=== PATIENT | male | born 1980 | race Caucasian/White ===

== ENCOUNTER 2018-08-05 23:45 | Emergency (ER) | payer BC, SELFPAY ==
[2018-08-05 23:47] VITALS: BP 119/76; PULSE 79; RESP 16; TEMP 36.1; BMI 17.9
[2018-08-06 00:33] LABS: Absolute Lymphocyte Count 1.82 X10^3/ul (0.83-4.51); Absolute Neutrophil Count 4.2 X10^3/uL (2.0-7.7); Basophil# 0.04 X10^3/uL; Basophil% 0.6 % (0-1); Eosinophil# 0.21 X10^3/uL; Eosinophils% 3.1 % (0-5); Hematocrit 49.7 % (40-54); Hemoglobin 17.1 g/dl (13.0-16.5); Lymphocyte # 1.82 X10^3/ul (4.0); Mean Corp Hgb Conc 34.4 g/gl (32-36); Mean Corpuscular Hgb 32.4 pg (27.0-32.0); Mean Corpuscular Volume 94.3 fL (80-94); Mean Platelet Vol. 9.5 fl (6.2-12.0); Monocyte# 0.43 X10^3/uL; Monocyte% 6.4 % (0-10); Neutrophil # 4.23 X10^3/uL (2.7-7.7); Neutrophil % 62.6 % (47-70); Platelet Count 218 K/mm3 (150-450); RBC Distribution Width CV 13.5 % (11.6-14.6); RBC Distribution Width SD 46.1 fl (35.1-43.9); Red Blood Count 5.27 M/mm3 (4.6-6.2); White Blood Count 6.8 K/mm3 (4.4-11.0)
[2018-08-06 00:35] LABS: POSITIVE COUNT NO; POSITIVE DIFFERENTIAL NO; POSITIVE MORPHOLOGY NO
[2018-08-06 00:44] LABS: Anion Gap 8 (5-15); BUN 8 mg/dL (7-18); BUN/Creat Ratio 10.9 RATIO (10-20); Calcium,Total 8.7 mg/dL (8.5-10.1); Chloride 104 mmol/L (98-107); Creatinine, Serum 0.74 mg/dL (0.70-1.30); EST Glomerular Filtration Rate 125 mL/min (>60); Est Glom Filt Rate - Afr Amer 151 mL/min (>60); Estimated Creatinine Clearance 118.81 ml/min; Glucose 86 mg/dL (74-106); Potassium 3.6 mmol/L (3.5-5.1); Sodium Level 138 mmol/L (136-145)
--- NOTE | 2018-08-06 01:10 | ED.DCSUM_ITS ---
- ER Visit Summary Date of Service: 08/06/18 Chief Complaint: Suicidal ideation History of Present Illness: The patient is a 38 M brought in by police for suicidal ideation. Reports patient left the alliance party after drinking was found walking, police was called to check on his status. He reported he has been h aving suicidal thoughts. Information stating he has had relationship issues. No further information discussed with patient. He states he has had suicidal thoughts twice in the past. No suicide attempts. He states he drinks alcohol daily. Tobacco history. Denies illicit drugs. No history of seeing a counselor or psychiatrist. Denies any past medical history. States only hernia surgery in the past. Physical Examination: General: Alert and oriented ?3, no acute distress, cooperative with exam however not fully disclosing all answers HEENT: Normocephalic, atraumatic. Moist mucosa membranes Neck: supple, nontender. Cardiovascular: Regular rate and rhythm, no murmurs Respiratory: Normal breath sounds, symmetric, no distress Abdomen: Soft, nontender, nondistended Extremities: Nontender, no edema, pulses intact ?4 Neuro: no focal neurological deficits. Psych: Suicidal ideations. No homicidal ideations. Test Results: Tox screen negative. Alcohol 204. CBC, BMP normal. Emergency Department Course and Treatment: Patient cooperative with exam, however he did not want to further explain reasons for suicidal thoughts. Only thing he stated was relationship problems. He denies any plan. Medical clearance workup initially. Alcohol is 204, tox screen negative. Clinically stable walking in the room. He is medically cleared. Pending [facility] evaluation. 0 [phone]: Patient evaluated by mental health counselor. He is no longer suicidal. Reports he made poor decision and statement. Safety contract with mental health counselor. He is from [place], follow-up call will be made in the morning by counselor. Treatment Plan: [] Disposition: Discharge Impression: 1. Suicidal ideation 2. Alcohol dependence This note was generated with [employer] dictation software. It may contain incorrect words, spelling, and punctuation that were not noted in review of the chart prior to signing ED Disposition - Plan for ED Patient: Disposition: Home or Assisted Living Chief Complaint: Suicidal Diagnosis: Suicidal ideation, Alcohol dependence Instructions: ED Contract, No Harm, Understanding Alcoholism Referrals: Jayme Cid MD [Primary Care Provider] - 3-5 Days Additional Instructions: Counselor will follow up with call tomorrow.
[2018-08-06 01:11] LABS: Amphetamine Urine VISTA NEGATIVE (<1000 ng/mL); Barbiturate Urine VISTA NEGATIVE (< 200 ng/mL); Benzodiazepine Urine VISTA NEGATIVE (< 200 ng/mL); Cocaine Urine VISTA NEGATIVE (< 300 ng/mL); Ecstacy Urine VISTA NEGATIVE (< 500 ng/mL); Methadone Urine VISTA NEGATIVE (< 300 ng/mL); PCP Urine VISTA NEGATIVE (< 25 ng/mL); THC Urine VISTA NEGATIVE (< 50 ng/mL); Vista UDS pH Range 6
[2018-08-06 01:56] VITALS: RESP 12
[2018-08-06 02:50] VITALS: BP 111/70; PULSE 87; RESP 18; O2SAT 98
[2018-08-06 04:09] VITALS: BP 121/70; PULSE 67; RESP 18; O2SAT 97
--- NOTE | 2018-08-06 04:09 | NURSING ---
PATIENT TOLD THIS NURSE THAT HE HIT THE LEFT SIDE OF HIS HEAD EARLIER IN THE EVENING. I LET DR. LUCIANO KNOW AND SINCE HE WASN'T HAVING ANY SYMPTOMS HE WASN'T WORRIED.
[2018-08-06 05:01] VITALS: BP 136/88; PULSE 92; RESP 18; O2SAT 97
--- NOTE | 2018-08-06 05:02 | ED.RN ---
PATIENT SENT HOME WITH SAFETY PLAN FROM [facility]. DR. LUCIANO IS MADE AWARE OF THIS AND AGREED TO THE PLAN. A CAB WAS CALLED AND PATIENT WAS DISCHARGED.
== END 2018-08-06 05:03 | disposition home or self-care (01) ==
PROVIDERS: Emergency Provider Emergency Medicine; Family Provider Family Medicine; PCP Family Medicine
DX: R45.851 Suicidal ideations (principal); F10.229 Alcohol dependence with intoxication, unspecified; Y90.9 Presence of alcohol in blood, level not specified; Z72.0 Tobacco use
CPT/HCPCS: 80048; 80307; 80320; 85025; 99283; G0480

== ENCOUNTER → 2023-02-10 | Outpatient (CLI) | payer OTHER, SELFPAY ==
[2023-02-10 17:56] LABS: Absolute Lymphocyte Count 2.24 X10^3/uL (0.83-4.51); Absolute Neutrophil Count 3.4 X10^3/uL (2.0-7.7); Basophil# 0.04 X10^3/uL; Basophil% 0.6 % (0-1); Eosinophil# 0.23 X10^3/uL; Eosinophils% 3.7 % (0-5); Hemoglobin 16.4 g/dL (13.0-16.5); Lymphocyte # 2.24 X10^3/ul (0.83-4.51); Lymphocyte % 35.6 % (19-41); Mean Corp Hgb Conc 33.5 g/dL (32-36); Mean Corpuscular Hgb 31.9 pg (27.0-32.0); Mean Corpuscular Volume 95.3 fL (80-94); Mean Platelet Vol. 10.1 fl (6.2-12.0); Monocyte# 0.38 X10^3/uL; NRBC Flagged by Analyzer 0 % (0-5); Neutrophil % 53.9 % (47-70); Platelet Count 288 K/mm3 (150-450); RBC Distribution Width SD 45.6 fl (35.1-43.9); Red Blood Count 5.14 M/mm3 (4.6-6.2); White Blood Count 6.3 K/mm3 (4.4-11.0)
[2023-02-10 18:18] LABS: ALB/GLOB Ratio 1.3 RATIO (0.9-2.4); AST(SGOT) 18 U/L (15-37); Alanine Aminotransfer ALT/SGPT 29 U/L (16-61); Albumin, Serum 4.3 g/dL (3.2-5.0); Alkaline Phosphatase 48 U/L (45-117); Anion Gap 6 (5-15); BUN 15 mg/dL (7-18); BUN/Creat Ratio 15.6 RATIO (10-20); Chloride 104 mmol/L (98-107); Cholesterol 179 mg/dL (200); Creatinine, Serum 0.96 mg/dL (0.70-1.30); EST Glomerular Filtration Rate 90 mL/min (>60); Est Glom Filt Rate - Afr Amer 109 mL/min (>60); GGTP 17 U/L (15-85); Globulin 3.3 g/dL (2.2-4.2); Glucose 90 mg/dL (74-106); High Density Lipoprotein 70 mg/dL; Potassium 4.4 mmol/L (3.5-5.1); Protein, Total 7.6 g/dL (6.4-8.2); Sodium Level 138 mmol/L (136-145); Triglycerides 61 mg/dL; Very Low Density Lipoprotein 12 mg/dL (5-40)
== END | disposition home or self-care (01) ==
LOC: BFHLAB 14:29
PROVIDERS: PCP Family Medicine; Referring Provider Family Medicine; Visit Provider Family Medicine
DX: R56.9 Unspecified convulsions (principal); F10.90 Alcohol use, unspecified, uncomplicated
CPT/HCPCS: 36415; 80053; 80061; 82977; 85025

== ENCOUNTER 2025-05-17 09:33 | Observation (INO) | payer BC, SELFPAY ==
[2025-05-17] VITALS (18 sets, daily range): BP systolic 104–132; BP diastolic 65–93; PULSE 67–92; RESP 14–18; TEMP 36.6–37.4; O2SAT 94–100; BMI 19.3; BMI 21.9
--- NOTE | 2025-05-17 09:43 | CT_ITS ---
EXAM: CT Abdomen and Pelvis With Intravenous Contrast CLINICAL INDICATION: ABDOMINAL PAIN TECHNIQUE: Axial computed tomography images of the abdomen and pelvis with intravenous contrast. This CT exam was performed using one or more of the following dose reduction techniques: automated exposure control, adjustment of the mA and/or kV according to patient size, and/or use of iterative reconstruction technique. COMPARISON: No relevant prior studies available. FINDINGS: LUNG BASES: Unremarkable. No mass. No consolidation. ABDOMEN: LIVER: Hepatomegaly with fatty infiltration. GALLBLADDER AND BILE DUCTS: Unremarkable. No calcified stones. No ductal dilation. PANCREAS: Unremarkable. No mass. No ductal dilation. SPLEEN: Unremarkable. No splenomegaly. ADRENALS: Unremarkable. No mass. KIDNEYS AND URETERS: Unremarkable. No stones within either kidney. No hydronephrosis. STOMACH AND BOWEL: Fecal retention in the colon consistent with constipation. No obstruction. No mucosal thickening. PELVIS: APPENDIX: Mucosal thickening in the appendix with surrounding inflammation. Appendix measures 1.1 cm in diameter. BLADDER: Unremarkable. No mass. REPRODUCTIVE: Unremarkable as visualized. ABDOMEN and PELVIS: INTRAPERITONEAL SPACE: Unremarkable. No free air. No significant fluid collection. BONES/JOINTS: No acute fracture. No dislocation. SOFT TISSUES: Umbilical hernia containing fat. VASCULATURE: Unremarkable. No abdominal aortic aneurysm. LYMPH NODES: Unremarkable. No enlarged lymph nodes. CT/Abdomen/Pelvis W IV Cont ONLY IMPRESSION: 1. Mucosal thickening in the appendix with surrounding inflammation. Appendix measures 1.1 cm in diameter. Findings are consistent with acute appendicitis. No rupture. 2. Hepatomegaly with fatty infiltration. 3. No obstructive uropathy. 4. Fecal retention in the colon consistent with constipation. 5. Umbilical hernia containing fat. Red Alert: Acute appendicitis without rupture. The critical information above was relayed directly by me by telephone to Brandon Mcnair on 05/17/2025 at 10:57 am with readback verification. Reading Location: [facility]
--- NOTE | 2025-05-17 09:56 | EDS_ITS ---
HPI History of Present Illness Chief Complaint: Abd Pain Narrative Narrative: Chief complaint and HPI: Abdominal pain. 45-year-old male with no significant past medical history other than a previous right inguinal hernia repair open with mesh presents for evaluation of abdominal pain. Onset abdominal pain was yesterday evening after eating. Associated symptoms are bloating and nausea. He denies any fever, chills, shortness of breath, chest pain, emesis, diarrhea, dysuria. States he has not had a bowel movement today. Pain is located around the umbilicus. Not on blood thinners. Last ate a piece of toast early this morning. Review of systems: See HPI Medications: As listed on the chart Allergies: As listed on the chart PFSH: Per chart Vital signs: As listed on the chart. Reviewed. Physical exam: Gen: A&O x3, NAD Head: Normocephalic, atraumatic Eyes: No sclera icterus, conjunctiva clear ENT: Moist mucous membranes Neck: Trachea midline, No JVD CV: RRR, no murmurs, no peripheral edema Resp: Lungs CTA BL, no w/r/c GI: Abd soft, distended, mildly tender to palpation diffusely, no r/r/g : No CVA tenderness Musc: Full ROM, no deformity Skin: Warm, dry Neuro: Alert, oriented, grossly intact, sensation intact Psych: Cooperative, appropriate mood and affect [facility] Medical History Alcohol abuse GERD (gastroesophageal reflux disease) Smoker Seizures Home Medications ?Medication ?Instructions ?Recorded ?Last Taken ?Type azithromycin 250 mg tablet 250 mg PO QDAY #6 tabs 07/09 Unknown Rx benzonatate 200 mg capsule 200 mg PO TID PRN cough #20 caps 07/27/23 Unknown Rx fluticasone propionate 50 1 spray intranasal BID #16 g brady 09/27/23 Unknown Rx mcg/actuation nasal spray,suspension (Allergy Relief (fluticasone)) oxycodone 5 mg tablet 5 - 10 mg (1 - 2 x 5 mg) PO Q4H 05/17/25 Unknown Rx PRN PRN Pain Score 4-10 5 days #14 tabs Allergy/AdvReac Type Severity Reaction Status Date / Time phenytoin (From Dilantin) Allergy Unknown Verified 05/17/25 09:34 Sulfa (Sulfonamide Allergy Unknown Verified 05/17/25 09:34 Antibiotics) Social History Smoking Status: Current every day smoker tobacco type: cigarettes EXAM Physical Exam Const Vital Signs: 05/17/25 09:33 Temperature 99.4 F H Temperature Source Oral Pulse Rate 87 Respiratory Rate 14 Blood Pressure 118/85 H Blood Pressure Mean 96 Pulse Ox 99 Oxygen Delivery Method Room Air MDM MDM MDM Narrative Medical decision making narrative: 45-year-old male with no significant past medical history other than a previous right inguinal hernia repair open with mesh presents for evaluation of abdominal pain. Onset abdominal pain was yesterday evening after eating. Associated symptoms are bloating and nausea. Differential diagnosis includes but is not limited to bowel obstruction, appendicitis, pancreatitis, colitis, UTI, uro lithiasis. NS bolus, morphine, Zofran ordered for symptoms. Abdominal pain workup ordered including CT abdomen and pelvis. CBC with leukocytosis of 16.2. No anemia. CMP relatively unremarkable. Lipase unremarkable. UA negative for UTI. CT abdomen pelvis shows acute appendicitis without rupture. I did personally speak with the radiologist about the findings over the telephone. Fecal retention consistent with constipation. Umbilical hernia containing fat. Zosymaricruz ordered for antibiotics. Dr. Tellez was consulted and patient was discussed. Patient will be admitted under his service for OR later this afternoon. Patient was updated with results and confirmed understanding of plan. Impression: 1. Acute appendicitis Lab Data Labs: Laboratory Results - last 24 hr 05/17/25 05/17/25 09:55 11:05 WBC 16.2 H RBC 5.05 Hgb 15.3 Hct 44.6 MCV 88.3 MCH 30.3 MCHC 34.3 RDW Std Deviation 43.8 RDW Coeff of Garrett 13.5 Plt Count 269 MPV 9.8 Immature Gran % (Auto) 0.400 Neut % (Auto) 79.0 H Lymph % (Auto) 11.9 L Curry % (Auto) 7.8 Eos % (Auto) 0.7 Baso % (Auto) 0.2 Absolute Neuts (auto) 12.8 H Absolute Lymphs (auto) 1.93 Nucleated RBC % 0 Sodium 136 Potassium 4.1 Chloride 101 Carbon Dioxide 23.0 Anion Gap 12 BUN 15 Creatinine 0.84 Estim Creat Clear Calc 102.10 Est GFR (MDRD) Non-Af 108 BUN/Creatinine Ratio 17.5 Glucose 107 H Calcium 9.6 Total Bilirubin 0.90 AST 19 ALT 30 Alkaline Phosphatase 63 Total Protein 7.3 Albumin 4.5 Globulin 2.9 Albumin/Globulin Ratio 1.6 Lipase 16 Urine Color Yellow Urine Clarity Clear Urine pH 7.0 Ur Specific Sentinel 1.010 Urine Protein 15 H Urine Glucose (UA) Normal Urine Ketones Negative Urine Occult Blood Negative Urine Nitrite Negative Urine Bilirubin Negative Urine Urobilinogen Normal Ur Leukocyte Esterase Negative Urine RBC 0 SEEN Urine WBC 0 SEEN Ur Squamous Epith Cells 0 SEEN Urine Bacteria 0 SEEN Urine Mucus 0 SEEN Radiography Diagnostic Testing: Clinical Impression(s) from Imaging Studies Abdomen/Pelvis CT 05/17/25 09:43 IMPRESSION: 1. Mucosal thickening in the appendix with surrounding inflammation. Appendix measures 1.1 cm in diameter. Findings are consistent with acute appendicitis. No rupture. 2. Hepatomegaly with fatty infiltration. 3. No obstructive uropathy. 4. Fecal retention in the colon consistent with constipation. 5. Umbilical hernia containing fat. Red Alert: Acute appendicitis without rupture. The critical information above was relayed directly by me by telephone to Brandon Luna on 05/17/2025 at 10:57 am with readback verification. Reading Location[facility] Discharge Plan Disposition Disposition: Acute Care Hospital [facility] Discharge Date/Time: 05/17/25 12:42
[2025-05-17] MEDS: 0.9% Normal Saline (1000mL) 1,000 ML 999 ML IV (10:12)
[2025-05-17 10:19] LABS: Hematocrit 44.6 % (40-54); Hemoglobin 15.3 g/dL (13.0-16.5); Immature Granulocytes Count 0.060 X10^3/uL (0.0-0.0); Mean Corp Hgb Conc 34.3 g/dL (32-36); Mean Corpuscular Volume 88.3 fL (80-94); Mean Platelet Vol. 9.8 fl (6.2-12.0); NRBC Flagged by Analyzer 0 % (0-5); Platelet Count 269 K/mm3 (150-450); RBC Distribution Width CV 13.5 % (11.6-14.6); RBC Distribution Width SD 43.8 fl (35.1-43.9); Red Blood Count 5.05 M/mm3 (4.6-6.2); White Blood Count 16.2 K/mm3 (4.4-11.0)
[2025-05-17 11:00] LABS: AST(SGOT) 19 U/L (<=37); Alanine Aminotransfer ALT/SGPT 30 U/L (<=46); Albumin, Serum 4.5 g/dL (3.5-5.0); Alkaline Phosphatase 63 U/L (40-129); Anion Gap 12 (5-15); BUN 15 mg/dL (4-19); BUN/Creat Ratio 17.5 RATIO (10-20); Calcium,Total 9.6 mg/dL (7.6-11.0); Carbon Dioxide 23.0 mmol/L (21.0-32.0); Chloride 101 mmol/L (98-108); Estimated Creatinine Clearance 102.10 ml/min (50-250); Globulin 2.9 g/dL (2.2-4.2); Glucose 107 mg/dL (70-99); Lipase 16 U/L (13-75); Potassium 4.1 mmol/L (3.3-5.1)
[2025-05-17 11:12] LABS: Mucous, Urine 0 SEEN /hpf (<or=2+); Red Blood Cells-Urine 0 SEEN /hpf (0-5); Squamous Epithelial Cells - UA 0 SEEN /hpf (0-5)
[2025-05-17 11:19] LABS: Color, Urine Yellow (Yellow); Glucose, Dipstick Normal (Normal); Ketone-Dipstick Negative (Negative); Leukocyte Esterase-Dipstick Negative /ul (Negative); Nitrite-Dipstick Negative (Negative); Occult Blood-Urine Negative /ul (Negative); Protein-Dipstick 15 mg/dl (Negative); Specific Gravity, Urine 1.010 (1.002-1.030); Urine Bilirubin Dipstick Negative (Negative)
--- NOTE | 2025-05-17 11:27 | HP.PCM.SX_ITS ---
HPI - General HPI Narrative EAMON MERA, is a 45 M who presents with lower abdominal pain that started yesterday. He reports no nausea or vomiting. He does have a low-grade fever. PFSH Home Medications ?Medication ?Instructions ?Recorded ?Last Taken ?Type azithromycin 250 mg tablet 250 mg PO QDAY #6 tabs 07/09 Unknown Rx benzonatate 200 mg capsule 200 mg PO TID PRN cough #20 caps 07/27/23 Unknown Rx fluticasone propionate 50 1 spray intranasal BID #16 g brady 09/27/23 Unknown Rx mcg/actuation nasal spray,suspension (Allergy Relief (fluticasone)) Allergy/AdvReac Type Severity Reaction Status Date / Time phenytoin (From Dilantin) Allergy Unknown Verified 05/17/25 09:34 Sulfa (Sulfonamide Allergy Unknown Verified 05/17/25 09:34 Antibiotics) Social History Smoking Status: Current every day smoker tobacco type: cigarettes Vital Signs Vital Signs Vital Signs: 05/17/25 09:33 Temperature 99.4 F H Temperature Source Oral Pulse Rate 87 Respiratory Rate 14 Blood Pressure 118/85 H Blood Pressure Mean 96 Pulse Ox 99 Oxygen Delivery Method Room Air Weight Weight: 146 lb 6.191 oz Body Mass Index (BMI) 19.3 Physical Exam Const oriented x3 and no apparent distress Resp normal respiratory effort Cardio regular rate and regular rhythm GI soft to palpation Palpation: tender RLQ Extremity normal to inspection Results Lab / Micro Data 05/17/25 09:55 05/17/25 09:55 Labs: Laboratory Results - last 24 hr 05/17/25 09:55: WBC 16.2 H, RBC 5.05, Hgb 15.3, Hct 44.6, MCV 88.3, MCH 30.3, MCHC 34.3, RDW Std Deviation 43.8, RDW Coeff of Garrett 13.5, Plt Count 269, MPV 9.8, Immature Gran % (Auto) 0.400, Neut % (Auto) 79.0 H, Lymph % (Auto) 11.9 L, Toombs % (Auto) 7.8, Eos % (Auto) 0.7, Baso % (Auto) 0.2, Absolute Neuts (auto) 12.8 H, Absolute Lymphs (auto) 1.93, Nucleated RBC % 0, Sodium 136, Potassium 4.1, Chloride 101, Carbon Dioxide 23.0, Anion Gap 12, BUN 15, Creatinine 0.84, Estim Creat Clear Calc 102.10, Est GFR (MDRD) Non-Af 108, BUN/Creatinine Ratio 17.5, Glucose 107 H, Calcium 9.6, Total Bilirubin 0.90, AST 19, ALT 30, Alkaline Phosphatase 63, Total Protein 7.3, Albumin 4.5, Globulin 2.9, Albumin/Globulin Ratio 1.6, Lipase 16 05/17/25 11:05: Urine Color Yellow, Urine Clarity Clear, Urine pH 7.0, Ur Specific Golden 1.010, Urine Protein 15 H, Urine Glucose (UA) Normal, Urine Ketones Negative, Urine Occult Blood Negative, Urine Nitrite Negative, Urine Bilirubin Negative, Urine Urobilinogen Normal, Ur Leukocyte Esterase Negative Imaging Radiology Impression Abdomen/Pelvis CT 05/17/25 09:43 IMPRESSION: 1. Mucosal thickening in the appendix with surrounding inflammation. Appendix measures 1.1 cm in diameter. Findings are consistent with acute appendicitis. No rupture. 2. Hepatomegaly with fatty infiltration. 3. No obstructive uropathy. 4. Fecal retention in the colon consistent with constipation. 5. Umbilical hernia containing fat. Red Alert: Acute appendicitis without rupture. The critical information above was relayed directly by me by telephone to Brandon Luna on 05/17/2025 at 10:57 am with readback verification. Reading Location: [facility] Assessment & Plan Assessment/Plan (1) Acute appendicitis: QUALIFIERS: Acute appendicitis type: unspecified acute appendicitis type Qualified Code(s): K35.80 - Unspecified acute appendicitis PLAN: The patient had lower abdominal pain and a white count of 16. He had a CT scan which showed acute appendicitis with thickening of the mucosa and dilation of the appendix. I discussed laparoscopic appendectomy with the patient in detail. I discussed the risks including but not limited to bleeding, infection, injury to other organs such as the bowel, bladder, ureter. Patient understands the risks and is willing to proceed. I will admit the patient for observation and operate this afternoon. Slade Tellez MD Pager: [facility] [address] [place] [address] [address] [place] [address] Office:
[2025-05-17] MEDS: Piperacil/Tazobactam 3.375 GM in 0.9% Normal Saline (50mL MB+) 50 ML IV (11:59)
--- NOTE | 2025-05-17 13:28 | PCM.PRE.AN2 ---
ASA Classification* ASA Classification ASA Classification: 2 and E Assessment & Plan Anesthesia* Anesthesia Assessment Anesthesia Assessment: Discussed sedation and/or anesthesia options, risks, benefits, and alternatives with patient/parents/legal guardian/POA. Questions invited. The patient/parents/legal guardian/POA seems to understand and agrees to proceed with anesthesia plan. Reviewed the physical assessment, medical history, allergy history and patient home medications list prior to surgery/procedure/anesthetic and documented any changes. Performed airway and anesthesia risk assessments. Anesthesia Type Anesthesia Type: General Anesthesia Focused Assessment* Temperature: 97.9 F Pulse Rate: 71 Blood Pressure: 115/65 Respiratory Rate: 16 Pulse Ox: 99 Airway Assessment Mouth opens: >3 cm Mallampati Score: II Labs Anesthesia Preop lab: CBC WBC 16.2 K/mm3 (4.4-11.0) H 05/17/25 09:55 05/17/25 RBC 5.05 M/mm3 (4.6-6.2) 05/17/25 09:55 05/17/25 Hgb 15.3 g/dL (13.0-16.5) 05/17/25 09:55 05/17/25 Hct 44.6 % (40-54) 05/17/25 09:55 05/17/25 Plt Count 269 K/mm3 (150-450) 05/17/25 09:55 05/17/25 CHEMISTRY Potassium 4.1 mmol/L (3.3-5.1) 05/17/25 09:55 05/17/25 Sodium 136 mmol/L (133-145) 05/17/25 09:55 05/17/25 BUN 15 mg/dL (4-19) 05/17/25 09:55 05/17/25 Creatinine 0.84 mg/dL (0.70-1.20) 05/17/25 09:55 05/17/25 Glucose 107 mg/dL (70-99) H 05/17/25 09:55 05/17/25 COAG Pre-Assessment Diagnosis/Proposed Procedure Planned Operative Procedure(s): Laparoscopic appendectomy Anesthesia History Anesthesia History - territory representative: Anesthesia History - territory representative Hx Hospitalization Any Problems With Anesthesia Cholinesterase deficiency You/Your Family Experience fever (hyperthermia) with Relationship Recent Exposure to Contagious Disease Does patient have nerve stimulator Patient instructed to have device shut off --Does patient have Pacemaker or ICD? When Was Last Pacemaker Check QUESTION #4 FULL TEXT: You/Your Family Experience fever (hyperthermia) with Anesthesia Last Oral Intake Last Oral intake: Last Oral Intake NPO since Meds taken in AM with sips of water? Meds patient instructed to take am of surgery PONV PONV - territory representative: PONV - territory representative Female HX of Motion Sickness HX of N/V After Surgery Non-Smoker Duration of Surgery greater than 60 minutes Number of Risk Factors PONV Score Height & Weight Height & Weight: Anesthesia: Height & Weight Height 6 ft 1 in 05/17/25 13:05 Weight: 75.296 kg 05/17/25 13:05 Body Mass Index (BMI) 21.9 05/17/25 13:05 Respiratory Assessment Respiratory Assessment - territory representative: Respiratory Tract Infection Hx - territory representative Hx Respiratory Tract Infection STOP Sleep Apnea STOP Sleep Apnea - territory representative: STOP Sleep Apnea - territory representative Hx Hypertension No 05/17/25 12:58 Hx Sleep Apnea No 05/17/25 12:58 CPAP BIPAP Do you snore loudly (louder No 05/17/25 12:58 than talking or can be heard Do you often feel tired/ No 05/17/25 12:58 fatigued/ sleepy during daytime? Has anyone observed you stop No 05/17/25 12:58 breathing during sleep? STOP Results Negative 05/17/25 12:58 QUESTION #5 FULL TEXT : Do you snore loudly (louder than talking or can be heard through closed doors)? Tobacco Use History Tobacco Use History - territory representative: Tobacco Use History - territory representative Tobacco Use Smoking Status Current every day smoker 05/17/25 12:58 Hx Tobacco Use Yes 05/17/25 12:58 Years Smoking 20 05/17/25 12:58 Packs Smoked per Day Smoking Cessation Date was within the last 15 years Hx Smoking Cessation Date Hx Smoking Cessation Counseling Hematologic Medial History Hematologic Hx - territory representative: Hematologic Medical Hx - metrology specialist Hx of Blood Transfusion No 05/17/25 12:58 Hx of Transfusion in last 3 No 05/17/25 12:58 Months Date of Last Transfusion (if within last 3 months) Ever experience any problems No 05/17/25 12:58 with transfusion(s)? Specify any problems Hx of Preganancy in last 3 N/A 05/17/25 12:58 Months Nurse Filling Out Transfusion TCLEVIDEN 05/17/25 12:58 & Questions: Date: 05/17/25 05/17/25 12:58 Time: 13:19 05/17/25 12:58 Patient unable to answer at this time (ie. confused, unrespo /Reproduction History /Reproductive History - territory representative: /Reproductive Hx- territory representative Hx Now Gestational Age (in weeks): EDC: Hx Hx Para Hx Section SAB Active Medications Active Medications: Current Medications Generic Name Dose Route Start Last Admin Trade Name Freq PRN Reason Stop Dose Admin Sodium Chloride 1,000 mls @ 100 mls/hr 05/17/25 11:30 IV .Q10H [place] Sodium Chloride 250 mls @ 15 mls/hr 05/17/25 13:09 IV .[id number] PRN Saline Flush Sodium Chloride 250 mls @ 15 mls/hr 05/17/25 13:09 IV .[id number] PRN Additional IVPB Infusion Morphine Sulfate 2 - 4 mg 05/17/25 11:28 Morphine 2 Mg/Ml Syringe IV Q2H PRN PRN Pain Score 4-10 Ondansetron HCl 4 mg 05/17/25 11:28 Ondansetron 4 Mg/2 Ml Vial IV Q6H PRN PRN NAUSEA/VOMITING Sodium Chloride 10 - 40 ml 05/17/25 11:28 0.9% Saline Lock 10 Ml Syringe IV UD PRN SALINE FLUSH Sodium Chloride 10 - 40 ml 05/17/25 13:09 0.9% Saline Lock 10 Ml Syringe IV UD PRN SALINE FLUSH PFSH Medical History Alcohol abuse GERD (gastroesophageal reflux disease) Smoker Seizures Home Medications ?Medication ?Instructions ?Recorded ?Last Taken ?Type azithromycin 250 mg tablet 250 mg PO QDAY #6 tabs 07/27/23 Unknown Rx benzonatate 200 mg capsule 200 mg PO TID PRN cough #20 caps 07/27/23 Unknown Rx fluticasone propionate 50 1 spray intranasal BID #16 grams 09/27/23 Unknown Rx mcg/actuation nasal spray,suspension (Allergy Relief (fluticasone)) Allergy/AdvReac Type Severity Reaction Status Date / Time phenytoin (From Dilantin) Allergy Unknown Verified 05/17/25 09:34 Sulfa (Sulfonamide Allergy Unknown Verified 05/17/25 09:34 Antibiotics) Social History Smoking Status: Current every day smoker tobacco type: cigarettes Review of Systems (Anesthesia) ROS Narrative System reviewed and no additional complaints, except as documented.
[2025-05-17] MEDS: 0.9% Normal Saline (1000mL) 1,000 ML 100 ML IV (13:44)
--- NOTE | 2025-05-17 14:38 | NURSING ---
Voided and now back in bed. Going down to surgery via bed at this time.
--- NOTE | 2025-05-17 15:30 | APP_PTH ---
PATIENT: EAMON MERA LOC: [facility] U#:[id number] AGE/SX: 45/M ROOM: NH321 RE05/17/[address]: Dr. Slade Tellez MD : 1980 BED: 1 DIS: 05/17/2025 SPEC #: [id number] RECD: 05/20/25 07:33 STATUS: MISTY MCKINNEY #: [id number] DAVID: 05/17/25 15:[address]: Slade Tellez DEPT: SURGICAL PATHOLOGY RECD BY: Bret Fried ENTERED: 05/20/25 11:15 SP TYPE: APPENDIX OTHR DR: Dr. Christa Garcia MD Tissues: A - Appendix, NOS Procedures: Surgery Specimen Level III HEADER OPERATION: Laparoscopic appendectomy PRE-OP DIAGNOSIS: Acute appendicitis TISSUE SUBMITTED: A- Appendix MICROSCOPIC DIAGNOSIS A. Cecal appendix, laparoscopic appendectomy: * Gangrenous appendicitis * Fibrous obliteration of the distal lumen MICROSCOPIC DESCRIPTION Slides are reviewed. GROSS DESCRIPTION A. Received in formalin labeled with the patient's name and date of . Designated as appendix is a 5.5 x 1.1 cm wood-tinsley appendix with up to 2.2 cm of attached focally congested mesoappendix. The serosa is somewhat dull with patchy fibrinous exudate. The margin is inked black and shaved. Sectioning reveals wood-tinsley congested mucosa with pale fecal material throughout the lumen. The distal tip is fibrotic however, no definitive lesions are grossly appreciated. [employer] sections are submitted in 2 cassettes as follows: A1: Distal tipA2: Margin, cross-sections NM 05/20/2025 CPT:10890
[2025-05-17] MEDS: Bupiv/Epi 0.25% 30 ML Vial (15:50)
--- NOTE | 2025-05-17 16:01 | OP.PCM_ITS ---
Operative Report (Standard) Operative Information Date of Procedure: 05/17/25 Pre-Operative Diagnosis: Acute appendicitis Post-Operative Diagnosis: Acute appendicitis Surgery/Procedure Performed: Laparoscopic appendectomy clinical analyst: Yes Production Control Scheduler: Joann Akhtar Tasks completed by assistant passenger locomotive engineer: Opening & closing Type of Anesthesia: General/Regional RN Documented Start/Stop Times: Operation Date: 05/17/25 15:30 Case Time Into Pre-Op 05/17/25 14:49 Anesthesia Start 05/17/25 15:31 Into Room 05/17/25 15:31 Procedure Start 05/17/25 15:48 Procedure Start Time: 15:48 Procedure Stop Time: 16:10 Select all DRAINS/GRAFTS/IMPLANTS that apply: None Estimated Blood Loss: 5 Specimen collected: Yes Description of specimen(s) removed: Appendix Description of surgery: The patient was brought into the operating room and general anesthesia was induced. The left arm was tucked and the abdomen was prepped and draped in usua l sterile fashion. A small midline incision was made superior to the umbilicus and deepened to the level of the fascia. The fascia was elevated and incised. The peritoneum was also elevated and incised. A finger sweep was performed and a balloon trocar was placed into the abdomen and inflated. The abdomen was insufflated to 15 mmHg and the camera was inserted and the abdomen was inspected for any injuries upon entering the abdomen. There were none. The patient was placed in Trendelenburg position and a 5 mm ports placed in the left lower quadrant and suprapubic areas under direct visualization. Next using atraumatic bowel graspers the appendix was identified. The appendix was grasped and elevated and Enseal was used to take down the mesoappendix. A stapler was used to come across the base of the appendix. The appendix was then placed in Endo Catch bag and removed through the umbilical incision. There was purulent fluid in the pelvis that was suctioned. The staple line was inspected and found to be hemostatic and intact. The 2 5 mm ports are removed under direct visualization. The balloon trocar was deflated and removed and all the air was removed from the abdomen. The umbilical incision fascia was closed with an 0 Vicryl [id number] suture. The incisions were then irrigated with saline and dried. Local anesthetic was injected into the incision sites. The skin incisions were then closed with interrupted 4-0 Monocryl suture and Steri- Strips. Bandages were applied and the patient was awoken and taken to PACU in stable condition. Patient tolerated the procedure well. Surgical Findings: Purulent fluid in the pelvis Complications Complications: No Admit VTE Documentation VTE Mechan Device Prophylaxis: SCD's
--- NOTE | 2025-05-17 16:02 | DCINST_ITS ---
Discharge Instructions Diet Discharge Diet: Light diet - advance as tolerated Activity Discharge Activity: May Not Drive (for 2-3 days or while taking narcotic pain medications) May shower in (days): 1 Lifting Restrictions: 15 lbs for 2 weeks Dressing / Incision Call your doctor if your incision/area has: Continuous Slow Oozing, Sudden Increased Bleeding, Increased Pain/ Swelling, Increased Redness and Foul Smelling Discharge Call your doctor if you observe: Fever of 101 or Higher Suture Line Care: Avoid Pulling/Pushing and Avoid Pinching/Bending Remove Dressing in: 2 days Cleanse incision/area with: Soap & Water Follow Up Care Please Follow Up With: Slade Tellez MD When: Please call to schedule 2 week follow up appointment at [phone] Test Results: Test results from this visit will be discussed in further detail at your follow- up appointment, if applicable. Discharge Plan Admission Admit Date/Time: 05/17/25 11:29 Attending Provider: Slade Tellez Primary Care Provider: Christa Garcia Discharge Orders/Prescriptions Prescriptions: New oxycodone 5 mg Tablet 5 - 10 mg PO Q4H PRN PRN (Reason: Pain Score 4-10) 5 Days Qty: 14 0RF Continued azithromycin 250 mg tablet 250 mg PO QDAY Qty: 6 0RF Rx Instructions: 2 tablets today, then 1 tablet daily on days 2 through 5 benzonatate 200 mg capsule 200 mg PO TID PRN (Reason: cough) Qty: 20 0RF fluticasone propionate [Allergy Relief (fluticasone)] 50 mcg/actuation spray,suspension 1 spray intranasal BID Qty: 16 0RF Rx Instructions: administer into affected nostril Referrals / Follow Up: Christa Garcia MD [Primary Care Provider] - Disposition Disposition (needs filled in before D/C Order can be placed): Home, Self Care
--- NOTE | 2025-05-17 16:20 | PCM.POST.ANE ---
Anesthesia: Postop Eval I Current Vital Signs Temperature: 99.3 F Pulse Rate: 90 Blood Pressure: 126/91 Respiratory Rate: 18 Pulse Ox: 96 Assessment Airway patent: Yes Spontaneous unlabored respirations: Yes nausea: No Vomiting: No Anesthesia Complication: No Fluid Hydration Crystalloid volume administer (ml): 1,000 Total IV fluid infused: 1,000 Progress Note Anesthesia document: Postop Eval 1 completed: Yes
--- OUTSIDE RECORDS SUMMARY | 2025-05-17 19:30 | XMS RPT_ITS | CCD ---
Author Organization [facility] Care Team Providers Care Roller [place] Name Role Phone Christa Garcia Referring Unavailable Brendon Tuttle Attending Unavailable Christa Garcia Primary Care Unavailable Christa Garcia Primary Care Unavailable hCrista Garcia Referring Unavailable Gregorio Shaw Attending Unavailable Christa Garcia Primary Care Unavailable Christa Garcia Attending Unavailable Christa Garcia Referring Unavailable Jose SPENCE, Dr. Goodwin Primary Care Provider Dr. Brandon Luna DO Emergency Provider Rosalinda SPENCE, Dr. June Attending Provider Dr. Slade Tellez MD Admit Provider [phone] Christa Garcia MD Primary Care Provider Allergies Allergy Classification Reported Allergen(s) Allergy Type Date of Onset Reaction(s) Facility (3 sources) Phenytoin Drug Allergy 8 Intolerance [facility] (2 sources) Sulfonamides (Antibiotic) Allergy to substance 8 Unknown [facility] (1 source) Phenytoin Drug Allergy 3 [facility] (1 source) Sulfonamides (Antibiotic) Drug allergy (disorder) 3 [facility] (1 source) Sulfonamides (Antibiotic) Drug Allergy 5 Intolerance [facility] Medications Current Medications Medication Drug Class(es) Dates Sig (Normalized) Sig (Original) azithromycin 250 mg oral tablet (1 source) Macrolide Antimicrobial Start: 07-27-2023 Azithromycin 250 mg tablet Active 250 mg PO daily 6 0 July 27, 2023 12:00am 2 tablets today, then 1 tablet daily on days 2 through 5 benzonatate 200 mg oral capsule (1 source) Non-narcotic Antitussive Start: 07-27-2023 take 1 capsule by mouth three times daily as needed for cough Benzonatate 200 mg capsule Active 200 mg PO THREE TIMES A DAY as needed for cough July 27, 2023 12:00am fluticasone propionate 0.05 mg/actuat metered dose nasal spray (1 source) Corticosteroid Start: 09-27-2023 take 50 ug nasal route twice daily Fluticasone Propionate (Allergy Relief (Fluticasone)) 50 mcg/actuation spray,suspension Active 1 NMA INTRANASAL TWICE A DAY September 27, 2023 1:00am administer into affected nostril omeprazole 20 mg delayed release oral capsule (1 source) Proton Pump Inhibitor take 1 capsule by mouth once daily omeprazole (PRILOSEC) 20 mg capsule Take 20 mg by mouth once daily. Active vitamin b12 1 mg oral tablet (1 source) Vitamin B12 take 1 tablet by mouth once daily cyanocobalamin (VITAMIN B-12) 1,000 mcg tab Take 1,000 mcg by mouth once daily. Active Problems Active Problems Problem Classification Problem Date Documented Da te Episodic/Chronic Abdominal pain (1 source) Abdominal pain; Translations: [Unspecified abdominal pain] 05-17-2025 Episodic Alcohol-related disorders (2 sources) Alcohol dependence; Translations: [Alcohol dependence, uncomplicated] 08-07-2018 Chronic Appendicitis and other appendiceal conditions (2 sources) Acute appendicitis; Translations: [Unspecified acute appendicitis] 05-17-2025 Episodic Other lower respiratory disease (1 source) Cough; Translations: [Cough in adult] 07-27-2023 Episodic Other upper respiratory disease (1 source) Polyp of nasal cavity and/or nasal sinus; Translations: [Nasal polyp, unspecified] 09-27-2023 Episodic Suicide and intentional self-inflicted injury (2 sources) Suicidal thoughts; Translations: [Suicidal ideations] 08-07-2018 Episodic Unclassified (1 source) Cough, unspecified; Translations: [Cough, unspecified] Onset: 07-27-2023 Past or Other Problems Problem Classification Problem Date Documented Da te Episodic/Chronic Epilepsy; convulsions (1 source) Unspecified convulsions; Translations: [Unspecified convulsions] Onset: 02-16-2023 Episodic Results Test Name Value Interpretation Reference Range Facility Absolute lymphocyte countOrd ered By: Brandon Luna on 05-17-2025 Lymphocytes Auto (Unsp spec) [#/Vol] 1.93 10*3/uL 0.83-4.51 [facility] Absolute neutrophil countOrd ered By: Brandon Luna on 05-17-2025 Neutrophils (Bld) [#/Vol] 12.8 10*3/uL High 2.0-7.7 [facility] Anion gap in Serum or Plasma Ordered By: Brandon Luna on 05-17-2025 Anion gap [Moles/Vol] 12 mmol/L 5-15 [facility] Automated lymphocyte count a s percentage of total leukocytesOrdered By: Brandon Luna on 05-17-2025 Lymphocytes/100 WBC Auto (Unsp spec) 11.9 % Low 19-41 [facility] BUN/creatinine ratioOrdered By: Brandon Luna on 05-17-2025 Urea nitrogen/Creatinine [Mass ratio] 17.5 mg/mg 10-20 [facility] Basophil percentageOrdered B y: Brandon Luna on 05-17-2025 Basophils/100 WBC (Bld) 0.2 % 0-1 [facility] Bilirubin Test strip Ql (U)O rdered By: Brandon Luna on 05-17-2025 Bilirubin Ql (U) Negative Negative [facility] Bilirubin, totalOrdered By: Brandon Luna on 05-17-2025 Bilirubin [Mass/Vol] 0.90 mg/dL 0.00-1.30 [facility] Carbon dioxide, total [Moles /volume] in Central venous bloodOrdered By: Brandon Luna on 05-17-2025 CO2 [Moles/Vol] 23.0 mmol/L 21.0-32.0 [facility] Chloride assayOrdered By: Ross Luna on 05-17-2025 Chloride [Moles/Vol] 101 mmol/L 98-108 [facility] Eosinophil percentageOrdered By: Brandon Luna on 05-17-2025 Eosinophils/100 WBC (Bld) 0.7 % 0-5 [facility] Erythrocyte distribution wid th ratioOrdered By: Brandon Luna on 05-17-2025 Erythrocyte distribution width (RBC) [Ratio] 13.5 % 11.6-14.6 [facility] Erythrocyte distribution wid th standard deviationOrdered By: Brandon Gonzalez on 05-17-2025 Erythrocyte distribution width (RBC) [Ratio] 43.8 fl 35.1-43.9 [facility] Glomerular filtration rate ( GFR) estimation/1.73 sq m using serum, plasma, or whole bOrdered By: Brandonankita Luna on 05-17-2025 GFR/1.73 sq M.predicted among non-blacks MDRD (S/P/Bld) [Vol rate/Area] 108 mL/min/{1.73_m2} >60 [facility] Comment on above: mL/min/1.73m2 CKD-EP I Creatinine Equation (2020) Hematocrit Auto (Bld) [Volum e fraction]Ordered By: Brandon Luna on 05-17-2025 Hematocrit (Bld) [Volume fraction] 44.6 % 40-54 [facility] Hemoglobin measurementOrdere d By: Brandon Luna on 05-17-2025 Hemoglobin (Bld) [Mass/Vol] 15.3 g/dL 13.0-16.5 [facility] Immature granulocytes/100 WB C Auto (Bld)Ordered By: Brandon Luna on 05-17-2025 Immature granulocytes/100 WBC (Bld) 0.400 % 0.0-0.9 [facility] Comment on above: IG% - Immature Granu locytes (promyelocytes, myelocytes and metamyelocytes) > 1% indicates that a LEFT SHIFT is Present. Ketones Test strip Ql (U)Ord ered By: Brandon Luna on 05-17-2025 Ketones Ql (U) Negative Negative [facility] Laboratory - Chemistry and C hemistry - challengeOrdered By: Brandon Luna on 05-17-2025 AST [Catalytic activity/Vol] 19 U/L <38 [facility] Lipase measurementOrdered By : Brandon Luna on 05-17-2025 Lipase [Catalytic activity/Vol] 16 U/L 13-75 [facility] Comment on above: Please note:LIPASE r evised reference range effective 23. New Lipase methodology. Expected to produce lower values than the previous assay method. NEW Reference Range: 13 - 75 U/L MCV (mean corpuscular volume ) determinationOrdered By: Brandon Luna on 05-17-2025 MCV (RBC) [Entitic vol] 88.3 fL 80-94 [facility] Mean corpuscular hemoglobin (MCH) determinationOrdered By: Brandon Luna on 05-17-2025 MCH (RBC) [Entitic mass] 30.3 pg 27.0-32.0 [facility] Mean corpuscular hemoglobin concentration (MCHC) determinationOrdered By: Brandon Luna on 05-17-2025 MCHC (RBC) [Mass/Vol] 34.3 g/dL 32-36 [facility] Mean platelet volume determi nationOrdered By: Brandon Luna on 05-17-2025 Platelet mean volume (Bld) [Entitic vol] 9.8 fL 6.2-12.0 [facility] Microscopic analysis of urin e for red blood cells (RBC)Ordered By: Brandon Luna on 05-17-2025 Microscopic analysis of urine for red blood cells (RBC) 0 SEEN /hpf 0-5 [facility] Monocyte percentageOrdered B y: Brandon Luna on 05-17-2025 Monocytes/100 WBC (Bld) 7.8 % 0-10 [facility] Mucus LM Ql (Urine sed)Order ed By: Brandon Luna on 05-17-2025 Mucus Ql (Urine sed) 0 SEEN /hpf [facility] Neutrophil percentageOrdered By: Brandon Luna on 05-17-2025 Neutrophils/100 WBC (Bld) 79.0 % High 47-70 [facility] Nitrite Test strip Ql (U)Ord ered By: Brandon Luna on 05-17-2025 Nitrite Ql (U) Negative Negative [facility] Nucleated red blood cell per centageOrdered By: Brandon Luna on 05-17-2025 Nucleated RBC/100 WBC (Bld) [Ratio] 0 % 0-5 [facility] Platelet countOrdered By: Ross Luna on 05-17-2025 Platelets (Bld) [#/Vol] 269 10*3/uL 150-450 [facility] Potassium measurement (mass/ volume)Ordered By: Brandon Luna on 05-17-2025 Potassium (Unsp spec) [Mass/Vol] 4.1 mmol/L 3.3-5.1 [facility] Protein Test strip Ql (U)Ord ered By: Brandon Luna on 05-17-2025 Protein Ql (U) 15 mg/dl High Negative [facility] RBC Auto (Bld) [#/Vol]Ordere d By: Brandon Luna on 05-17-2025 RBC (Bld) [#/Vol] 5.05 10*6/uL 4.6-6.2 [facility] Serum creatinine measurement (mass/volume)Ordered By: Brandon Luna on 05-17-2025 Creatinine [Mass/Vol] 0.84 mg/dL 0.70-1.20 [facility] Serum globulin measurementOr dered By: Brandon Luna on 05-17-2025 Globulin (S) [Mass/Vol] 2.9 g/dL 2.2-4.2 [facility] Serum glucose measurement (m ass/volume)Ordered By: Brandon Luna on 05-17-2025 Glucose [Mass/Vol] 107 mg/dL High 70-99 [facility] Serum or plasma alanine schaffer otransferase (ALT) measurementOrdered By: Brandon Luna on 05-17-2025 ALT [Catalytic activity/Vol] 30 U/L <47 [facility] Serum or plasma albumin stacey urement (mass/volume)Ordered By: Brandon Gonzalez on 05-17-2025 Albumin [Mass/Vol] 4.5 g/dL 3.5-5.0 [facility] Serum or plasma albumin/glob ulin mass ratioOrdered By: Brandon Luna on 05-17-2025 Albumin/Globulin [Mass ratio] 1.6 {ratio} 0.9-2.4 [facility] Serum or plasma alkaline rachel sphatase measurementOrdered By: Brandon Luna on 05-17-2025 ALP [Catalytic activity/Vol] 63 U/L 40-129 [facility] Serum or plasma calcium stacey urement (mass/volume)Ordered By: Brandon Gonzalez on 05-17-2025 Calcium [Mass/Vol] 9.6 mg/dL 7.6-11.0 [facility] Serum or plasma urea nitroge n measurement (mass/volume)Ordered By: Brandon Luna on 05-17-2025 Urea nitrogen [Mass/Vol] 15 mg/dL 4-19 [facility] Sodium levelOrdered By: Parker Luna on 05-17-2025 Sodium [Moles/Vol] 136 mmol/L 133-145 [facility] Squamous epithelial cells de tection in urine sediment by light microscopyOrdered By: Brandon Luna on 05-17-2025 Epithelial cells.squamous LM Ql (Urine sed) 0 SEEN /hpf 0-5 [facility] Total proteinOrdered By: Alonso Luna on 05-17-2025 Protein [Mass/Vol] 7.3 g/dL 5.9-8.4 [facility] Urine clarityOrdered By: Alonso Luna on 05-17-2025 Clarity (U) Clear Clear [facility] Urine color determinationOrd ered By: Brandon Luna on 05-17-2025 Color (U) Yellow Yellow [facility] Urine glucose detectionOrder ed By: Brandon Luna on 05-17-2025 Glucose Ql (U) Normal mg/dl Normal [facility] Urine leukocyte esterase det ection by dipstickOrdered By: Brandon Luna on 05-17-2025 Leukocyte esterase Test strip Ql (U) Negative Negative [facility] Urine pHOrdered By: Brandon Valdovinos on 05-17-2025 pH (U) 7.0 [pH] 5.0 - 8.0 [facility] Urine sediment bacteria coun t by microscopy (number/high power field)Ordered By: Brandon Luna on 05-17-2025 Bacteria LM.HPF (Urine sed) [#/Area] 0 /[HPF] None Seen [facility] Urine specific gravity measu rementOrdered By: [facility] on 05-17-2025 Specific gravity (U) [Rel density] 1.010 1.002-1.030 [facility] Urine urobilinogen measureme ntOrdered By: Brandonankita Luna on 05-17-2025 Urobilinogen Ql (U) Normal mg/dl Normal [facility] White blood cell (WBC) count Ordered By: Brandon Luna on 05-17-2025 WBC (Bld) [#/Vol] 16.2 10*3/uL High 4.4-11.0 [facility] White blood cell countOrdere d By: Brandon Luna on 05-17-2025 White blood cell count 0 SEEN /hpf 0-5 [facility] Urgent Care Visit Reporton 1 11-27-2022 Urgent Care Visit Report [facility] [address], [address] [place] [id number] OFFICE VISIT Date of Service: 09/27/23 MR#: [id number] Acct: [id number] Name: EAMON CORONA Rep #: [id number] : 1980 Provider: NIGEL Red Age/Sex: 43/M Location: [facility] Status: Signed Intake Vital Signs 07/27/23 15:10 09/27/23 15:26 Height 1.88 m 1.88 m Weight: 70.76 kg 71.214 kg BMI 20.0 20.1 BP 113/76 118/80 Blood Pressure Location Lt brachial Rt brachial Position Sitting Sitting Pulse 73 70 Pulse Source Monitor Monitor Temp 98.4 F 98.4 F Temp Source Temporal Temporal Pulse Oximetry (%) 95 97 Intake Visit Reasons: POLYP IN NOSE Chief Complaint: left nasal polyp Allergies phenytoin [From Dilantin] Allergy (Verified 09/27/23 15:28) Unknown Sulfa (Sulfonamide Antibiotics) Allergy (Verified 09/27/23 15:28) Unknown Medications azithromycin 250 mg tablet 250 mg PO QDAY #6 tabs 07/27/23 [Rx Confirmed 09/27/23] benzonatate 200 mg capsule 200 mg PO TID PRN cough #20 caps 07/27/23 [Rx Confirmed 09/27/23] fluticasone propionate 50 mcg/actuation nasal spray,suspension (Allergy Relief (fluticasone)) 1 spray intranasal BID #16 grams 09/27/23 [Rx Confirmed 09/27/23] PFSH Social History Smoking Status: Current every day smoker HPI HPI Chief Complaint: left nasal polyp Details: EAMON CORONA, is a 43 M who presents to the office today for left nasal polyp. He has had this about 3.5 weeks. He has associated runny nose. He has a bump in the medial and superior part just inside the left nare. It is somewhat indurated. He has tried a nasal spray, vicks, and warm compress and notes he had some mild improvement. He also notes it was easier to breathe with the nasal spray but admits he has only treated it intermittently. ROS Const Constitutional: No chills, fatigue or fever(s) ENT ENT: Positive for nasal congestion and nasal discharge; No sore throat Endo Endocrine: No fatigue Exam Const General: cooperative, healthy appearing, comfortable, no acute distress, well developed and well groomed Nutritional Appearance: average body habitus and well nourished Orientation: alert, awake and oriented x3 HENMT Head: normocephalic and atraumatic Nose: mucous membranes and turbinates abnormal boggy and erythematous and nasal polyp (medial, superior, just inside left nare, some telangiectasia noted, indurat) Coding Level of Care Code Off vis,est,level 3 Diagnoses Left nasal polyps J33.9 Assessment and Plan Assessment and Plan (1) Left nasal polyps: Status: Acute Plan: ongoing about 3.5 weeks with nasal and sinus congestion. mild improvement with some unknown nasal spray otc and vicks and warm compresses. Recommended fluticasone BID to affected nostril, BID warm compress. Use for 2 weeks, consistently. If not resolved refer to ENT. No chronic medical issues/medication use. Medications: New fluticasone propionate 50 mcg/actuation (Allergy Relief (fluticasone)) administer into affected nostril 1 spray intranasal BID 16 grams 0RF 09/27/23 1541 Date Brendon Vogeligner Signature: Date (if applicable) CC: Normal [facility] Urgent Care Visit Reporton 0 07-27-2023 Urgent Care Visit Report [facility] [address], [address] [place] [address] OFFICE VISIT Date of Service: 07/27/23 MR#: [id number] Acct: [id number] Name: EAMON CORONA Rep #: [id number] : 1980 Provider: NIGEL Betts Age/Sex: 43/M Location: [facility] Status: Signed Intake Vital Signs 07/27/23 15:10 Height 6 ft 2 in Weight: 156 lb BMI 20.0 BP 113/76 Blood Pressure Location Lt brachial Position Sitting Pulse 73 Pulse Source Monitor Temp 98.4 F Temp Source Temporal Pulse Oximetry (%) 95 Intake Visit Reasons: BRONCHITIS Allergies phenytoin [From Dilantin] Allergy (Verified 07/27/23 15:10) Unknown Sulfa (Sulfonamide Antibiotics) Allergy (Verified 07/27/23 15:10) Unknown PFSH Social History Smoking Status: Current every day smoker HPI HPI Details: EAMON CORONA, is a 43 M who presents to the office today for initial evaluation approximately 1 week history of persistent chills, cough which is moist productive purulent, with cough more prevalent when supine. No complaints of facial pressure/forehead pressure or postnasal drip. No complaints of chest pain/shortness of breath/dyspnea on exertion. Smoker. No close contacts with similar complaints. No [id number] products taken to assist. No other associated symptoms and no alleviating/aggrava ting factors. ROS Const Constitutional: No other (As above) Exam Const General: cooperative, healthy appearing and no acute distress Nutritional Appearance: average body habitus Orientation: alert, awake and oriented x3 HENMT Head: normal to inspection Ears: hearing grossly normal bilaterally, external ears normal, TM's normal bilaterally and EAC's normal Nose: external nose normal, nares normal, septum normal and no nasal discharge Face and sinus: normal facial exam, sinuses nontender and face symmetric Mouth: oral mucosae normal, lip normal, tongue normal and oropharynx normal Throat: posterior oropharynx normal, tonsils normal, uvula midline and no postnasal drainage Eyes General: appearance normal, both eyes and all related structures Neck Neck: normal visual inspection, full ROM, no lymphadenopathy, no meningeal signs and supple Neck mass: No Thyroid: thyroid normal Lymphatic: no lymphadenopathy noted Chest Chest palpation inspection: normal inspection of the chest Resp Effort Inspection: normal respiratory effort, able to speak in complete sentences and cough Quality of cough: wet (Nonproductive in office today) Auscultation: Bilateral: Rhonchi (Clearing with cough) Cardio Palpation: normal PMI Rate: regular rate Rhythm: regular rhythm Heart Sounds: S1 normal, S2 normal, no gallops, no murmurs and no rubs Pulses: radial pulses present GI Inspection: normal to inspection Skin General: no rashes or lesions noted Neuro General: patient alert, patient awake and patient oriented x3 Cognition: normal cognition Speech: speech normal Psych Appearance: grossly normal Mental Status: mental status grossly normal Mood: congruent mood Affect: normal affect Speech and Movement: speech and movement normal Attitude: cooperative Results POC YAJAIRA CoV-2 PCR POC YAJAIRA CoV-2 PCR Not Detected Last Edit by Shira Ortiz on 07/27/23 15:39 Coding Level of Care Code Off vis,new,level 3 Diagnoses Cough in adult R05.9 Assessment and Plan Assessment and Plan (1) Cough in adult: Status: Acute Plan: - consider acute bronchitis See POC results. Azithromycin and benzonatate as prescribed today. Supportive measures as instructed today. Follow-up with PCP in 3 to 5 days should symptoms not proved, sooner should symptoms only worsen or any other concerns develop. Patient states acknowledging understanding all the above. This note was generated with [employer] dictation software. It may contain incorrect words, spelling, and punctuation that were not noted in checking the note before signing. Orders: Orders POC Rapid YAJAIRA Cov-2 PCR Today R05.9 - Cough, unspecified Medications: New azithromycin 2 tablets today, then 1 tablet daily on days 2 through 5 250 mg PO QDAY 6 tabs 0RF benzonatate 200 mg PO TID PRN 20 caps 0RF cough 07/27/23 1539 Date Gregorio Paredes Signature: Date (if applicable) CC: Normal [facility] Absolute lymphocyte countOrd ered By: Dr. Garcia on 02-10-2023 Lymphocytes Auto (Unsp spec) [#/Vol] 2.24 10*3/uL 0.83-4.51 [facility] Basophil percentageOrdered B y: Dr. Garcia on 02-10-2023 Basophils/100 WBC (Bld) 0.6 % 0-1 [facility] Bilirubin [Mass/Vol] 0.40 mg/dL 0.20-1.00 [facility] Comment on above: For patients on eltr ombopag therapy, use of Dimension [place] TBIL is not recommended. Chloride [Moles/Vol] 104 mmol/L 98-107 [facility] Cholesterol [Mass/Vol] 179 mg/dL <200 [facility] Comment on above: <200 mg/dL Desirable 200-240 mg/dL Borderline >240 mg/dL High Risk Eosinophils/100 WBC (Bld) 3.7 % 0-5 [facility] Glucose [Mass/Vol] 90 mg/dL 74-106 [facility] Neutrophils (Bld) [#/Vol] 3.4 10*3/uL 2.0-7.7 [facility] Neutrophils/100 WBC (Bld) 53.9 % 47-70 [facility] Potassium [Moles/Vol] 4.4 mmol/L 3.5-5.1 [facility] Protein [Mass/Vol] 7.6 g/dL 6.4-8.2 [facility] Sodium [Moles/Vol] 138 mmol/L 136-145 [facility] Triglyceride [Mass/Vol] 61 mg/dL <199 [facility] Comment on above: The drugs N-Acetylcy steine and Metamizole may falsely depress this assay.Serum Triglycerides Reference Interval Normal <150 mg/dL Borderline high 150 - 199 mg/dL High 200 - 499 mg/dL Very High > or = 500 mg/dL WBC (Bld) [#/Vol] 6.3 10*3/uL 4.4-11.0 [facility] Blood erythrocytes count (nu mber/volume)Ordered By: Dr. Garcia on 02-10-2023 RBC (Bld) [#/Vol] 5.14 10*6/uL 4.6-6.2 [facility] Blood hemoglobin measurement (mass/volume)Ordered By: Dr. Garcia on 02-10-2023 Hemoglobin (Bld) [Mass/Vol] 16.4 g/dL 13.0-16.5 [facility] Blood lymphocytes/100 leukoc ytesOrdered By: Dr. Garcia on 02-10-2023 Lymphocytes/100 WBC (Bld) 35.6 % 19-41 [facility] Blood monocytes/100 leukocyt esOrdered By: Dr. Garcia on 02-10-2023 Monocytes/100 WBC (Bld) 6.0 % 0-10 [facility] Blood platelet mean volumeOr dered By: Dr. Garcia on 02-10-2023 Platelet mean volume (Bld) [Entitic vol] 10.1 fL 6.2-12.0 [facility] CBC W/Diff, Automatedon Absolute Lymph 2.24 X10 3/uL Normal 0.83-4.51 [facility] Comment on above: Performed By: #### L 500.4050, L100.0100, L501.5100, L500.4100 #### [facility] [address] [place], [address] Absolute Neut 3.4 X10 3/uL Normal 2.0-7.7 [facility] Comment on above: Performed By: #### L 500.4050, L100.0100, L501.5100, L500.4100 #### [facility] [address] [place], [address] Basophils/100 WBC (Bld) 0.6 % Normal 0-1 [facility] Comment on above: Performed By: #### L 500.4050, L100.0100, L501.5100, L500.4100 #### [facility] [address] [place], [address] Eosinophils/100 WBC (Bld) 3.7 % Normal 0-5 [facility] Comment on above: Performed By: #### L 500.4050, L100.0100, L501.5100, L500.4100 #### [facility] [address] [place], [address] Erythrocyte distribution width (RBC) [Ratio] 13.0 % Normal 11.6-14.6 [facility] Comment on above: Performed By: #### L 500.4050, L100.0100, L501.5100, L500.4100 #### [facility] [address] [place], [address] Hematocrit (Bld) [Volume fraction] 49.0 % Normal 40-54 [facility] Comment on above: Performed By: #### L 500.4050, L100.0100, L501.5100, L500.4100 #### [facility] [address] [place], [address] Hemoglobin (Bld) [Mass/Vol] 16.4 g/dL Normal 13.0-16.5 [facility] Comment on above: Performed By: #### L 500.4050, L100.0100, L501.5100, L500.4100 #### [facility] [address] [place], [address] IG% 0.200 Normal 0.0-0.9 [facility] Comment on above: Result Comment: IG% - Immature Granulocytes (promyelocytes, myelocytes and metamyelocytes) > 1% indicates that a LEFT SHIFT is Present. Performed By: #### L 500.4050, L100.0100, L501.5100, L500.4100 #### [facility] [address] [place], [address] Lymphocytes/100 WBC (Bld) 35.6 % Normal 19-41 [facility] Comment on above: Performed By: #### L 500.4050, L100.0100, L501.5100, L500.4100 #### [facility] [address] [place], [address] MCH (RBC) [Entitic mass] 31.9 pg Normal 27.0-32.0 [facility] Comment on above: Performed By: #### L 500.4050, L100.0100, L501.5100, L500.4100 #### [facility] [address] [place], [address] MCHC (RBC) [Mass/Vol] 33.5 g/dL Normal 32-36 [facility] Comment on above: Performed By: #### L 500.4050, L100.0100, L501.5100, L500.4100 #### [facility] [address] [place], [address] MCV (RBC) [Entitic vol] 95.3 fL High 80-94 [facility] Comment on above: Performed By: #### L 500.4050, L100.0100, L501.5100, L500.4100 #### [facility] [address] [place], [address] Monocytes/100 WBC (Bld) 6.0 % Normal 0-10 [facility] Comment on above: Performed By: #### L 500.4050, L100.0100, L501.5100, L500.4100 #### [facility] [address] [place], [address] Neutrophils/100 WBC (Bld) 53.9 % Normal 47-70 [facility] Comment on above: Performed By: #### L 500.4050, L100.0100, L501.5100, L500.4100 #### [facility] [address] [place], [address] Nucleated RBC (Bld) [#/Vol] 0 10*3/uL Normal 0-5 [facility] Comment on above: Performed By: #### L 500.4050, L100.0100, L501.5100, L500.4100 #### [facility] [address] [place], [address] Platelet mean volume (Bld) [Entitic vol] 10.1 fL Normal 6.2-12.0 [facility] Comment on above: Performed By: #### L 500.4050, L100.0100, L501.5100, L500.4100 #### [facility] [address] [place], [address] Platelets (Bld) [#/Vol] 288 10*3/uL Normal 150-450 [facility] Comment on above: Performed By: #### L 500.4050, L100.0100, L501.5100, L500.4100 #### [facility] [address] [place], [address] RBC (Bld) [#/Vol] 5.14 10*6/uL Normal 4.6-6.2 [facility] Comment on above: Performed By: #### L 500.4050, L100.0100, L501.5100, L500.4100 #### [facility] [address] [place], [address] RDW SD 45.6 fl High 35.1-43.9 [facility] Comment on above: Performed By: #### L 500.4050, L100.0100, L501.5100, L500.4100 #### [facility] [address] [place], [address] WBC (Bld) [#/Vol] 6.3 10*3/uL Normal 4.4-11.0 [facility] Comment on above: Performed By: #### L 500.4050, L100.0100, L501.5100, L500.4100 #### [facility] [address] [place], [address] Comprehensive Metabolic [facility] 02-10-2023 Albumin [Mass/Vol] 4.3 g/dL Normal 3.2-5.0 [facility] Comment on above: Performed By: #### L 500.4050, L100.0100, L501.5100, L500.4100 #### [facility] [address] [place], [address] Albumin/Globulin [Mass ratio] 1.3 {ratio} Normal 0.9-2.4 [facility] Comment on above: Performed By: #### L 500.4050, L100.0100, L501.5100, L500.4100 #### [facility] [address] [place], [address] ALK P 48 U/L Normal 45-117 [facility] Comment on above: Performed By: #### L 500.4050, L100.0100, L501.5100, L500.4100 #### [facility] [address] [place], [address] ALT [Catalytic activity/Vol] 29 U/L Normal 16-61 [facility] Comment on above: Performed By: #### L 500.4050, L100.0100, L501.5100, L500.4100 #### [facility] [address] [place], [address] AST [Catalytic activity/Vol] 18 U/L Normal 15-37 [facility] Comment on above: Performed By: #### L 500.4050, L100.0100, L501.5100, L500.4100 #### [facility] [address] [place], [address] Bilirubin [Mass/Vol] 0.40 mg/dL Normal 0.20-1.00 [facility] Comment on above: Result Comment: For patients on eltrombopag therapy, use of Dimension [place] TBIL is not recommended. Performed By: #### L 500.4050, L100.0100, L501.5100, L500.4100 #### [facility] [address] [place], [address] BUN/CRE 15.6 RATIO Normal 10-20 [facility] Comment on above: Performed By: #### L 500.4050, L100.0100, L501.5100, L500.4100 #### [facility] [address] [place], [address] CA,Total 9.0 mg/dL Normal 8.5-10.1 [facility] Comment on above: Performed By: #### L 500.4050, L100.0100, L501.5100, L500.4100 #### [facility] [address] [place], [address] Chloride [Moles/Vol] 104 mmol/L Normal 98-107 [facility] Comment on above: Performed By: #### L 500.4050, L100.0100, L501.5100, L500.4100 #### [facility] [address] [place], [address] CO2 [Moles/Vol] 28.0 mmol/L Normal 21.0-32.0 [facility] Comment on above: Performed By: #### L 500.4050, L100.0100, L501.5100, L500.4100 #### [facility] [address] [place], [address] Creatinine [Mass/Vol] 0.96 mg/dL Normal 0.70-1.30 [facility] Comment on above: Result Comment: The validity of the calculated GFR GFRAA in patients over 70 years has not been determined. Clinical correlation is essential. Performed By: #### L 500.4050, L100.0100, L501.5100, L500.4100 #### [facility] [address] [place], [address] EST GFR - AA 109 mL/min Normal >60 [facility] Comment on above: Result Comment: Afri can [place] GFR Calc Performed By: #### L 500.4050, L100.0100, L501.5100, L500.4100 #### [facility] [address] [place], [address] GAP 6 Normal 5-15 [facility] Comment on above: Performed By: #### L 500.4050, L100.0100, L501.5100, L500.4100 #### [facility] [address] [place], [address] GFR/1.73 sq M.predicted among non-blacks MDRD (S/P/Bld) [Vol rate/Area] 90 mL/min/{1.73_m2} Normal >60 [facility] Comment on above: Result Comment: Non- GFR Calc Performed By: #### L 500.4050, L100.0100, L501.5100, L500.4100 #### [facility] [address] [place], [address] Globulin (S) [Mass/Vol] 3.3 g/dL Normal 2.2-4.2 [facility] Comment on above: Performed By: #### L 500.4050, L100.0100, L501.5100, L500.4100 #### [facility] [address] [place], [address] Glucose [Mass/Vol] 90 mg/dL Normal 74-106 [facility] Comment on above: Performed By: #### L 500.4050, L100.0100, L501.5100, L500.4100 #### [facility] [address] [place], [address] Potassium [Moles/Vol] 4.4 mmol/L Normal 3.5-5.1 [facility] Comment on above: Performed By: #### L 500.4050, L100.0100, L501.5100, L500.4100 #### [facility] [address] [place], [address] Sodium [Moles/Vol] 138 mmol/L Normal 136-145 [facility] Comment on above: Performed By: #### L 500.4050, L100.0100, L501.5100, L500.4100 #### [facility] [address] [place], [address] T PROT 7.6 g/dL Normal 6.4-8.2 [facility] Comment on above: Performed By: #### L 500.4050, L100.0100, L501.5100, L500.4100 #### [facility] [address] [place], [address] Urea nitrogen [Mass/Vol] 15 mg/dL Normal 7-18 [facility] Comment on above: Performed By: #### L 500.4050, L100.0100, L501.5100, L500.4100 #### [facility] [address] [place], [place], [address] Determination of erythrocyte mean corpuscular volume (MCV)Ordered By: Dr. Garcia on 02-10-2023 MCV (RBC) [Entitic vol] 95.3 fL 80-94 [facility] GGTPon 02-10-2023 GGTP 17 U/L Normal - [facility] Comment on above: Performed By: #### L 500.4050, L100.0100, L501.5100, L500.4100 #### [facility] [address] [place], [address] Hematocrit Auto (Bld) [Volum e fraction]Ordered By: Dr. Garcia on 02-10-2023 Hematocrit (Bld) [Volume fraction] 49.0 % 40-54 [facility] - Chemistry and C hemistry - challengeOrdered By: Dr. Garcia on 02-10-2023 ALP [Catalytic activity/Vol] 48 U/L 45-117 [facility] ALT [Catalytic activity/Vol] 29 U/L 16-61 [facility] Amylase [Catalytic activity/Vol] 17 U/L [facility] CO2 [Moles/Vol] 28.0 mmol/L 21.0-32.0 [facility] Globulin (S) [Mass/Vol] 3.3 g/dL 2.2-4.2 [facility] Urea nitrogen/Creatinine [Mass ratio] 15.6 mg/mg 10-20 [facility] - Hematology and Cell countsOrdered By: Dr. Garcia on 02-10-2023 Erythrocyte distribution width (RBC) [Entitic vol] 45.6 fL 35.1-43.9 [facility] Erythrocyte distribution width (RBC) [Ratio] 13.0 % 11.6-14.6 [facility] Immature granulocytes/100 WBC (Bld) 0.200 % 0.0-0.9 [facility] Comment on above: IG% - Immature Granu locytes (promyelocytes, myelocytes and metamyelocytes) > 1% indicates that a LEFT SHIFT is Present. MCH (RBC) [Entitic mass] 31.9 pg 27.0-32.0 [facility] Nucleated RBC/100 WBC (Bld) [Ratio] 0 % 0-5 [facility] Lipid Profileon 02-10-2023 Cholesterol [Mass/Vol] 179 mg/dL Normal 200 [facility] Comment on above: Result Comment: <200 mg/dL Desirable 200-240 mg/dL Borderline >240 mg/dL High Risk Performed By: #### L 500.4050, L100.0100, L501.5100, L500.4100 #### [facility] [address] [place], [address] Cholesterol in HDL [Mass/Vol] 70 mg/dL Normal [facility] Comment on above: Result Comment: The drugs N-Acetylcysteine and Metamizole may falsely depress this assay. Reference Range HDL <40 mg/dL Low HDL Cholesterol HDL >or= 60 mg/dL High HDL Cholesterol Performed By: #### L 500.4050, L100.0100, L501.5100, L500.4100 #### [facility] [address] [place], [address] Cholesterol in LDL [Mass/Vol] 97 mg/dL Normal 0-130 [facility] Comment on above: Performed By: #### L 500.4050, L100.0100, L501.5100, L500.4100 #### [facility] [address] [place], [address] Cholesterol in VLDL [Mass/Vol] 12 mg/dL Normal 5-40 [facility] Comment on above: Performed By: #### L 500.4050, L100.0100, L501.5100, L500.4100 #### [facility] [address] [place], [address] Triglyceride [Mass/Vol] 61 mg/dL Normal [facility] Comment on above: Result Comment: The drugs N-Acetylcysteine and Metamizole may falsely depress this assay. Serum Triglycerides Reference Interval Normal <150 mg/dL Borderline high 150 - 199 mg/dL High 200 - 499 mg/dL Very High > or = 500 mg/dL Performed By: #### L 500.4050, L100.0100, L501.5100, L500.4100 #### [facility] [address] [place], [address] MCHC Auto (RBC) [Mass/Vol]Or dered By: Dr. Garcia on 02-10-2023 MCHC (RBC) [Mass/Vol] 33.5 g/dL 32-36 [facility] No Panel InformationOrdered By: Dr. Garcia on 02-10-2023 Estimated GFR (MDRD) Amer 109 mL/min >60 [facility] Comment on above: GFR Calc Estimated GFR (MDRD) Non-Af Amer 90 mL/min >60 [facility] Comment on above: Non- GFR Calc Platelets bldOrdered By: Dr. Garcia on 02-10-2023 Platelets (Bld) [#/Vol] 288 10*3/uL 150-450 [facility] Serum or plasma albumin stacey urement (mass/volume)Ordered By: Dr. Garcia on 02-10-2023 Albumin [Mass/Vol] 4.3 g/dL 3.2-5.0 [facility] Serum or plasma albumin/glob ulin mass ratioOrdered By: Dr. Garcia on 02-10-2023 Albumin/Globulin [Mass ratio] 1.3 {ratio} 0.9-2.4 [facility] Serum or plasma calcium stacey urement (mass/volume)Ordered By: Dr. Garcia on 02-10-2023 Calcium [Mass/Vol] 9.0 mg/dL 8.5-10.1 [facility] Serum or plasma cholesterol in HDL measurement (mass/volume)Ordered By: Dr. Garcia on 02-10-2023 Cholesterol in HDL [Mass/Vol] 70 mg/dL >40 [facility] Comment on above: The drugs N-Acetylcy steine and Metamizole may falsely depress this assay. Reference Range HDL <40 mg/dL Low HDL Cholesterol HDL >or= 60 mg/dL High HDL Cholesterol Serum or plasma cholesterol in VLDL measurement (mass/volume)Ordered By: Dr. Garcia on 02-10-2023 Cholesterol in VLDL [Mass/Vol] 12 mg/dL 5-40 [facility] Serum or plasma creatinine m easurement (mass/volume)Ordered By: Dr. Garcia on 02-10-2023 Creatinine [Mass/Vol] 0.96 mg/dL 0.70-1.30 [facility] Comment on above: The validity of the calculated GFR & GFRAA in patients over 70 years has not been determined. Clinical correlation is essential. Serum or plasma low density lipoprotein (LDL) cholesterol measurement (mass/volume)Ordered By: Dr. Garcia on 02-10-2023 Cholesterol in LDL [Mass/Vol] 97 mg/dL 0-130 [facility] Serum or plasma urea nitroge n measurement (mass/volume)Ordered By: Dr. Garcia on 02-10-2023 Urea nitrogen [Mass/Vol] 15 mg/dL 7-18 [facility] Thin prep Papanicolaou smear with manual screeningOrdered By: Dr. Garcia on 02-10-2023 Thin prep Papanicolaou smear with manual screening 18 U/L 15-37 [facility] Thin prep Papanicolaou smear with manual screening 6 5-15 [facility] Vital Signs Date Time Vital Sign Value Performing Clinician Facility 05-17-2025 12:40-0400 Body temperature 98.1 [degF] Dr. Christa Garcia MD Work Phone: [facility] 05-17-2025 12:40-0400 Diastolic blood pressure 80 mm[Hg] Dr. Christa Garcia MD Work Phone: [facility] 05-17-2025 12:40-0400 Heart rate 83 /min Dr. Christa Garcia MD Work Phone: [facility] 05-17-2025 12:40-0400 Respiratory rate 14 /min Dr. Christa Garcia MD Work Phone: [facility] 05-17-2025 12:40-0400 SaO2% (BldA) [Mass fraction] 98 % Dr. Christa Garcia MD Work Phone: [facility] 05-17-2025 12:40-0400 Systolic blood pressure 132 mm[Hg] Dr. Christa Garcia MD Work Phone: [facility] 05-17-2025 09:33-0400 Body height 185.[address] Christa Garcia MD Work Phone: [facility] 05-17-2025 09:33-0400 Body mass index (BMI) [Ratio] 19.3 kg/m2 Dr. Christa Garcia MD Work Phone: [facility] 05-17-2025 09:33-0400 Body weight 66.[address] Christa Garcia MD Work Phone: [facility] 05-17-2025 09:16-0400 Body temperature 99.81 [degF] Gaetano Liriano MAILROOM SUPERVISOR.GATE MORTISER OPERATOR Work Phone: [facility] 05-17-2025 09:16-0400 Body weight 75.6 kg Gaetano Liriano MAILROOM SUPERVISOR.GATE MORTISER OPERATOR Work Phone: [facility] 05-17-2025 09:16-0400 Diastolic blood pressure 62 mm[Hg] Gaetano Liriano MAILROOM SUPERVISOR.GATE MORTISER OPERATOR Work Phone: [facility] 05-17-2025 09:16-0400 Heart rate 102 /min Gaetano Liriano MAILROOM SUPERVISOR.GATE MORTISER OPERATOR Work Phone: [facility] 05-17-2025 09:16-0400 Respiratory rate 18 /min Gaetano Liriano MAILROOM SUPERVISOR.GATE MORTISER OPERATOR Work Phone: [facility] 05-17-2025 09:16-0400 SaO2% (BldA) [Mass fraction] 97 % Gaetano Liriano MAILROOM SUPERVISOR.GATE MORTISER OPERATOR Work Phone: [facility] 05-17-2025 09:16-0400 Systolic blood pressure 91 mm[Hg] Gaetano Liriano APRN.GATE MORTISER OPERATOR Work Phone: [facility] Encounters Encounter Date Encounter Type Care Provider Facility Start: 05-17-2025 Evaluation and management of inpatient Dr. Slade Tellez [facility] Work Phone: Start: 05-17-[address] Lashanda Garcia MD Work Phone: [facility] Start: 05-17-2025 Non-patient / Non-visit [facility] Concha [facility] Start: 05-17-2025 End: 05-17-2025 Office outpatient visit 15 minutes Gaetano Liriano APRN.GATE MORTISER OPERATOR Work Phone: [facility] [place] Comment on above: Abdominal pain, unsp ecified abdominal location (Primary Dx) Start: 09-27-2023 End: 09-27-2023 ambulatory Christa Misunny Facility:[facility] Start: 07-27-2023 End: 07-27-2023 ambulatory [facility] Facility:[facility] Start: 02-10-2023 End: 02-10-2023 Patient encounter procedure [facility]ennifer Came[facility] Start: 02-10-2023 End: 02-10-[address] [facility] Work Phone: Procedures Date Procedure Procedure Detail Performing Clinician Start: 05-17-2025 Urnls dip stick/tabl et reagent auto microscopy Dr. Christa Garcia MD Work Phone: Start: 05-17-[address] Christa Garcia MD Work Phone: Start: 05-17-2025 Computed tomography of abdomen and pelvis with intravenous contrast Dr. Christa Garcia MD Work Phone: Plan of Treatment Date Care Activity Detail Author Start: 05-31-2026 Screening for malignant neoplasm of colon [facility] Start: 07-08-2025 Influenza vaccination Influenza Vaccine (#1) [facility] Start: 05-17-2025 Laparoscopic appendectomy Laparoscopic, Appendectomy (Not Applicable) [facility] Start: 05-17-2025 Hospital admission, emergency, from emergency room, medical nature [facility] Start: 05-17-2025 Admission procedure [facility] Start: 05-17-2025 Ambulation without limitation [facility] Start: 05-17-2025 Taking patient vital signs [facility] Start: 05-17-2025 [facility] Start: 07-08-2024 Covid-19 Vaccine ( season) Covid-19 Vaccine ( season) [facility] Start: 2023 Diabetes Screening Diabetes Screening [facility] Start: 2023 Screening for malignant neoplasm of colon [facility] Start: 2013 Lipid panel Lipid Screening [facility] Start: 1997 Hepatitis B Vaccine (1 of 3 - 19+ 3-dose series) Hepatitis B Vaccine (1 of 3 - 19+ 3-dose series) [facility] Start: 1997 Pneumococcal vaccination Pneumococcal Vaccine (1 of 2 - PCV) [facility] Start: 1997 Urine microalbumin profile DTaP,Tdap,Td Vaccine (1 - Tdap) [facility] Start: 01-28-1996 Anxiety Screening Anxiety Screening [facility] Start: 01-28-1996 Depression Screening Depression Screening [facility] Start: 01-28-1996 Hepatitis C screening Hepatitis C Screening [facility] Start: 01-28-1996 HIV screening HIV Screening [facility] Payers Date Payer Category [facility] [id number] 2023 Self-pay [id number] 2023 Unknown [id number] 2011 Unknown LUIS M [id number] 2011 Unknown [id number] Unknown [id number] Unknown [id number] Unknown [id number] Social History Date Type Detail Facility Start: 08-05-2018 Tobacco smoking stat [facility] Unknown if ever smoked [facility] Start: 1980 Sex Assigned At Male [facility] Start: 05-17-2025 End: 05-17-2025 Tobacco smoking status [facility] Smokes tobacco daily (finding) [facility] History of tobacco use Cigarette Smoker [facility] Start: 05-17-2025 Tobacco use and exposure Smokeless tobacco non-user [facility] Start: 05-17-2025 History of Social function [facility] Start: 05-17-2025 Tobacco use panel [facility] Start: 1980 Sex assigned at Not on file [facility] History and physical note 05-17-2025 Note Date & Type Note Facility 05-17-2025 History and physi marty note [facility] Radiology Diagnostic study note 05-17-2025 Note Date & Type Note Facility 05-17-2025 Radiology Diagnostic study note [facility] Services [address] [place] [address] Abdomen/Pelvis W IV Cont ONLY MR#: [id number] Acct: [id number] Name: EAMON CORONA Rep #: [id number] : 1980 M 45 From: Marlena Montesinos MD PCP: Dr. Christa Garcia MD Status: PRE ER Study:Abdomen/Pelvis W IV Cont ONLY Date of E xam: 05/17/25 Exam# [id number] Ordering Dr: Brandon Bailey DO EXAM: CT Abdomen and Pelvis With Intravenous Contrast CLINICAL INDICATION: ABDOMINAL PAIN TECHNIQUE: Axial computed tomography images of the abdomen and pelvis with intravenous contrast. This CT exam was performed using one or more of the following dose reduction techniques: automated exposure control, adjustment of the mA and/or kV according to patient size, and/or use of iterative reconstruction technique. COMPARISON: No relevant prior studies available. FINDINGS: LUNG BASES: Unremarkable. No mass. No consolidation. ABDOMEN: LIVER: Hepatomegaly with fatty infiltration. GALLBLADDER AND BILE DUCTS: Unremarkable. No calcified stones. No ductal dilation. PANCREAS: Unremarkable. No mass. No ductal dilation. SPLEEN: Unremarkable. No splenomegaly. ADRENALS: Unremarkable. No mass. KIDNEYS AND URETERS: Unremarkable. No stones within either kidney. No hydronephrosis. STOMACH AND BOWEL: Fecal retention in the colon consistent with constipation. No obstruction. No mucosal thickening. PELVIS: APPENDIX: Mucosal thickening in the appendix with surrounding inflammation. Appendix measures 1.1 cm in diameter. BLADDER: Unremarkable. No mass. REPRODUCTIVE: Unremarkable as visualized. ABDOMEN and PELVIS: INTRAPERITONEAL SPACE: Unremarkable. No free air. No significant fluid collection. BONES/JOINTS: No acute fracture. No dislocation. SOFT TISSUES: Umbilical hernia containing fat. VASCULATURE: Unremarkable. No abdominal aortic aneurysm. LYMPH NODES: Unremarkable. No enlarged lymph nodes. CT/Abdomen/Pelvis W IV Cont ONLY IMPRESSION: 1. Mucosal thickening in the appendix with surrounding inflammation. Appendix measures 1.1 cm in diameter. Findings are consistent with acute appendicitis. No rupture. 2. Hepatomegaly with fatty infiltration. 3. No obstructive uropathy. 4. Fecal retention in the colon consistent with constipation. 5. Umbilical hernia containing fat. Red Alert: Acute appendicitis without rupture. The critical information above was relayed directly by me by telephone to Brandon Luna on 05/17/2025 at 10:57 am with readback verification. Reading Location: [facility] CC: Dr. Brandon Luna DO; Dr. Christa Garcia MD ~ Pet Training Instructor: Signed [facility] History of Present illness Narrative 05-17-2025 [facility]IS[facility] - 05/17/2025 9:17 AM EDT Note Date & Type Note Facility 05-17-2025 History of Presen t illness Narrative Subjective HPI Nontoxic-appearing male presents urgent care chief plaint abdominal pain. Duration of symptoms 1 day. Associated symptoms worsening abdominal pain. Presents today for evaluation. On examination patient was uncomfortable. No known sick contacts .Patient presents with: Abdominal Pain: Mid lower abd pain x1 day History reviewed. No pertinent past medical history. History reviewed. No pertinent surgical history. ALLERGIES Dilantin [Phenytoin] and Sulfa Drugs [Sulfa (Sulfonamide Antibiotics)] MEDICATIONS omeprazole (PRILOSEC) 20 mg capsule Take 20 mg by mouth once daily. cyanocobalamin (VITAMIN B-12) 1,000 mcg tab Take 1,000 mcg by mouth once daily. History reviewed. No pertinent family history. Social History Tobacco Use Smoking status: Every Day Types: Cigarettes Smokeless tobacco: Never BP 91/62 Pulse 102 Temp 37.7 C (99.8 F) Resp 18 Wt 75.6 kg (166 lb 10.7 oz) SpO2 97% Review of Systems Constitutional: Positive for fever. Negative for chills and malaise/fatigue. HENT: Negative for congestion, ear discharge, ear pain, sinus pain and sore throat. Eyes: Negative for blurred vision, pain, discharge and redness. Respiratory: Negative for cough, hemoptysis, sputum production, shortness of breath, wheezing and stridor. Cardiovascular: Negative for chest pain. Gastrointestinal: Positive for abdominal pain. Negative for diarrhea, nausea and vomiting. Musculoskeletal: Negative for myalgias. Skin: Negative for itching and rash. Neurological: Negative for dizziness and headaches. Objective Physical Exam Constitutional: General: He is not in acute distress. Appearance: He is ill-appearing. He is not toxic-appearing. HENT: Head: Normocephalic. Nose: Nose normal. Mouth/Throat: Mouth: Mucous membranes are dry. Eyes: Pupils: Pupils are equal, round, and reactive to light. Cardiovascular: Rate and Rhythm: Tachycardia present. Pulmonary: Effort: Pulmonary effort is normal. No respiratory distress. Abdominal: Tenderness: There is abdominal tenderness. Musculoskeletal: Cervical back: Normal range of motion. Skin: General: Skin is warm and dry. Neurological: General: No focal deficit present. Mental Status: He is alert. ASSESSMENT/PLAN: 1. Abdominal pain, unspecified abdominal location - ICD9: 789.00, ICD10: R10.9 Nontoxic but ill-appearing. Dry mucosal membranes. Abdominal pain with abnormal vital signs referred to ED to rule out acute abdomen. Will be seen at [place] [facility] Gaetano Liriano APRN.GATE MORTISER OPERATOR documented in this encounter [facility] Evaluation note Note Date & Type Note Facility Evaluation note No assessment information availa ble [facility] Work Phone: Evaluation note Note Date & Type Note Facility Evaluation note Diagnosis Onset Date Resolution Acute appendicitis acute May 072024 11:29am [facility] Work Phone: Evaluation note Note Date & Type Note Facility Evaluation note Diagnosis Abdominal pain, unspecified abdominal location- Primary documented in this encounter [facility] History and physical note Note Date & Type Note Facility History and physical note Note Date/Time May 17, 2025 11:28am [facility] Medical Records Department [address] [place] [address] H&P Exam - Surgical 05/17/25 1127 MR#: [id number] Acct: [id number] Name: EAMON CORONA Rep #:[id number] : 1980 45 From: Slade borges MD PCP: Dr. Christa Garcia MD Status:REG ER Location: ED HPI - General HPI Narrative EAMON CORONA is a 45 M who presents with lower abdominal pain that started yesterday. He reports no nausea or vomiting. He does have a low-grade fever. PFSH Home Medications ?Medication ?Instructions ?Recorded ?Last Taken ?Type azithromycin 250 mg tablet 250 mg PO QDAY #6 tabs 07/09 Unknown Rx benzonatate 200 mg capsule 200 mg PO TID PRN cough #20 caps 07/27/23 Unknown Rx fluticasone propionate 50 1 spray intranasal BID #16 g brady 09/27/23 Unknown Rx mcg/actuation nasal spray,suspension (Allergy Relief (fluticasone)) Allergy/AdvReac Type Severity Reaction Status Date / Time phenytoin (From Dilantin) Allergy Unknown Verified 05/17/25 09:34 Sulfa (Sulfonamide Allergy Unknown Verified 05/17/25 09:34 Antibiotics) Social History Smoking Status: Current every day smoker tobacco type: cigarettes Vital Signs Vital Signs Vital Signs: 05/17/25 09:33 Temperature 99.4 F H Temperature Source Oral Pulse Rate 87 Respiratory Rate 14 Blood Pressure 118/85 H Blood Pressure Mean 96 Pulse Ox 99 Oxygen Delivery Method Room Air Weight Weight: 146 lb 6.191 oz Body Mass Index (BMI) 19.3 Physical Exam Const oriented x3 and no apparent distress Resp normal respiratory effort Cardio regular rate and regular rhythm GI soft to palpation Palpation: tender RLQ Extremity normal to inspection Results Lab / Micro Data 05/17/25 09:55 05/17/25 09:55 Labs: Laboratory Results - last 24 hr 05/17/25 09:55: WBC 16.2 H, RBC 5.05, Hgb 15.3, Hct 44.6, MCV 88.3, MCH 30.3, MCHC 34.3, RDW Std Deviation 43.8, RDW Coeff of Garrett 13.5, Plt Count 269, MPV 9.8, Immature Gran % (Auto) 0.400, Neut % (Auto) 79.0 H, Lymph % (Auto) 11.9 L, Brooke % (Auto) 7.8, Eos % (Auto) 0.7, Baso % (Auto) 0.2, Absolute Neuts (auto) 12.8 H, Absolute Lymphs (auto) 1.93, Nucleated RBC % 0, Sodium 136, Potassium 4.1, Chloride 101, Carbon Dioxide 23.0, Anion Gap 12, BUN 15, Creatinine 0.84, Estim Creat Clear Calc 102.10, Est GFR (MDRD) Non-Af 108, BUN/Creatinine Ratio 17.5, Glucose 107 H, Calcium 9.6, Total Bilirubin 0.90, AST 19, ALT 30, AlkalinePhosphatase 63, Total Protein 7.3, Albumin 4.5, Globulin 2.9, Albumin/Globulin Ratio 1.6, Lipase 16 05/17/25 11:05: Urine Color Yellow, Urine Clarity Clear, Urine pH 7.0, Ur Specific [place] 1.010, Urine Protein 15 H, Urine Glucose (UA) Normal, Urine Ketones Negative, Urine Occult Blood Negative, Urine Nitrite Negative, Urine Bilirubin Negative, Urine Urobilinogen Normal, Ur Leukocyte Esterase Negative Imaging Radiology Impression Abdomen/Pelvis CT 05/17/25 09:43 IMPRESSION: 1. Mucosal thickening in the appendix with surrounding inflammation. Appendix measures 1.1 cm in diameter. Findings are consistent with acute appendicitis. No rupture. 2. Hepatomegaly with fatty infiltration. 3. No obstructive uropathy. 4. Fecal retention in the colon consistent with constipation. 5. Umbilical hernia containing fat. Red Alert: Acute appendicitis without rupture. The critical information above was relayed directly by me by telephone to Brandon Luna on 05/17/2025 at 10:57 am with readback verification. Reading Location: [facility] Assessment & Plan Assessment/Plan (1) Acute appendicitis: QUALIFIERS: Acute appendicitis type: unspecified acute appendicitis type Qualified Code(s): K35.80 - Unspecified acute appendicitis PLAN: The patient had lower abdominal pain and a white count of 16. He had a CTscan which showed acute appendicitis with thickening of the mucosa and dilation of the appendix. I discussed laparoscopic appendectomy with the patient in detail. I discussed the risks including but not limited to bleeding, infection,injury to other organs such as the bowel, bladder, ureter. Patient understands the risks and is willing to proceed. I will admit the patient for observation and operate this afternoon. Slade Tellez MD Pager: [facility] [address] [place] [address] [facility] [address] [place] [address] Office: 05/17/25 [id number] <Electronically signed by Slade Tellez MD> Cosigner Signature (if applicable): CC: Dr. Slade Tellez MD; Dr. Christa Garcia MD~ Signed [facility] Work Phone: Reason for referral (narrative) Note Date & Type Note Facility Reason for referral (narrative) No reason for referral information available [facility] Work Phone: Advance Directives Advance Directive Response Recorded Date/ Time Living Will No August 05, 2018 11:51pm Power of Supervisor Blasting No July 11:51pm Advance Directive Response Recorded Date/ Time Do you have a Healthcare Power of Supervisor Blasting? No May 17, 2025 9:43am Summary Purpose Family History No Family History Records Found Chief Complaint and Reason for Visit Chief Complaint Admit Date ABD May 17, 2025 11:2 7am APPENDICITIS May 17, 2025 11:2 9am Reason for Visit Admit Date Acute appendicitis May 17, 2025 11:2 9am Additional Source Comments Care Teams (unrecognized sec tion and content) Team Status: Active Member Role Status Dates Dr. Jayme Cid MD Family Provider Active Dr. Christa Garcia MD Primary Care Provider Active Team Status: Inactive Member Role Status Dates Dr. Christa Garcia MD Primary Care Prov ider, Attending Provider, Referring Provider Active Team Status: Active Member Role/Relationship Status Dates Dr. Christa Garcia MD Primary Care Provider Active Team Status: Active Member Role/Relationship Status Dates Dr. Christa Garcia MD Primary Care Provider Active Start: May 17, 2025 Dr. Brandon Luna DO Emergency Provider Activ e Start: May 17, 2025 Dr. Slade Tellez MD Attending Provider Active Start: May 17, 2025 Team Status: Active Member Role/Relationship Status Dates Dr. Christa Garcia MD Primary Care Provider Active Start: May 17, 2025 Dr. Brandon Luna DO Emergency Provider Activ e Start: May 17, 2025 Dr. Slade Tellez MD Admit Provider Active Start: May 17, 2025 Dr. Slade Tellez MD Attending Provider Active Start: May 17, 2025 [employer] Relationship Specialty Start Date End Date Christa Garcia MD [address] [facility] [place] [address] PCP - General Family Medicine 05/17/25 Goals (unrecognized section and content) Goals may be documented in a n alternate sectionGoals may be documented in an alternate section (unrecognized sect ion and content) No Status Records Found INFORMATION SOURCE (unrecogn ized section and content) DATE CREATED AUTHOR 09/29/2023 [facility] Source Comments (unrecognize d section and content) In the event this informatio n is protected by the Federal Confidentiality of Alcohol and Drug Abuse Patient Records regulations: The Federal rules restrict any use of the information to criminally investigate or prosecute any alcohol or drug abuse patient.[facility] Reason for Visit (unrecogniz ed section and content) Reason Comments Abdominal Pain Mid lower abd pain x 1 day FOR RECORDS PERTAINING TO PATIENTS WHO ARE OR HAVE BEEN ENROLLED IN A CHEMICAL DEPENDENCY/SUBSTANCEABUSE PROGRAM, SOME INFORMATION MAY BE OMITTED. This clinical summary was aggregated from multiple sources. Caution should be exercised in using it in the provision of clinical care. This summary normalizes information from multiple sources, and as a consequence, information in this document may materially change the coding, format and clinical context of patient data. In addition, data may be omitted in some cases. CLINICAL DECISIONS SHOULD BE BASED ON THE PRIMARY CLINICAL RECORDS. [facility]. provides no warranty or guarantee of the accuracy or completeness of information in this document.
--- NOTE | 2025-05-18 09:31 | POSTOPAN2_ITS ---
Anesthesia Postop Eval I Sum Postop Eval Completion status Anesthesia document: Postop Eval 1 completed: Yes Anesthesia Postop Eval I Summary Anesthesia Postop Eval I Summary: Anesthesia Postop Eval I: Assessment Summary Airway patent Yes 05/17/25 16:20 FINISHER [email or web address] Spontaneous unlabored Yes 05/17/25 16:20 FINISHER ACCORDION.[email or web address] respirations Mental status nausea No 05/17/25 16:20 FINISHER ACCORDION.CSIR Vomiting No 05/17/25 16:20 FINISHER ACCORDION.CSIR Anesthesia Postop Eval I: Fluid Summary Crystalloid volume administer 1,000 05/17/25 16:20 FINISHER ACCORDION.CSIR (ml) Colloids volume administered ( ml) Blood Product volume administered (ml) Total IV fluid infused 1,000 05/17/25 16:20 FINISHER ACCORDION.CSIR Anesthesia Postop Eval I: Summary Notes Anesthesia Complication No 05/17/25 16:20 FINISHER ACCORDION.CSIR Anesthesia Complication Comment: Post-operative progress note Anesthesia: Postop Eval II Evaluation Mental status: Awake Pain Level: 1 nausea: No Vomiting: No
--- NOTE | 2025-05-18 09:31 | PCM.POSTANE2 ---
Anesthesia Postop Eval I Sum Postop Eval Completion status Anesthesia document: Postop Eval 1 completed: Yes Anesthesia Postop Eval I Summary Anesthesia Postop Eval I Summary: Anesthesia Postop Eval I: Assessment Summary Airway patent Yes 05/17/25 16:20 NET DEVELOPER [email or web address].CSIR Spontaneous unlabored Yes 05/17/25 16:20 NET DEVELOPER CONSULTANT.CSIR respirations Mental status nausea No 05/17/25 16:20 NET DEVELOPER CONSULTANT.CSIR Vomiting No 05/17/25 16:20 NET DEVELOPER CONSULTANT.CSIR Anesthesia Postop Eval I: Fluid Summary Crystalloid volume administer 1,000 05/17/25 16:20 NET DEVELOPER CONSULTANT.CSIR (ml) Colloids volume administered ( ml) Blood Product volume administered (ml) Total IV fluid infused 1,000 05/17/25 16:20 NET DEVELOPER CONSULTANT.CSIR Anesthesia Postop Eval I: Summary Notes Anesthesia Complication No 05/17/25 16:20 NET DEVELOPER CONSULTANT.CSIR Anesthesia Complication Comment: Post-operative progress note Anesthesia: Postop Eval II Evaluation Mental status: Awake Pain Level: 1 nausea: No Vomiting: No
== END 2025-05-17 21:58 | disposition home or self-care (01) ==
LOC: ED 11:20 → MS3 12:15
PROVIDERS: Admitting Provider Surgery; Emergency Provider Surgery; PCP Family Medicine; Visit Provider Surgery
PROC: 0DTJ4ZZ Resection of Appendix, Percutaneous Endoscopic Approach (ICD-10-PCS; CPT 44970; principal; 2025-05-17 15:10)
DX: K35.891 Other acute appendicitis without perforation, with gangrene (principal); F17.210 Nicotine dependence, cigarettes, uncomplicated; K21.9 Gastro-esophageal reflux disease without esophagitis; Z79.899 Other long term (current) drug therapy
CPT/HCPCS: 44970; 00840; 74177; 80053; 81001; 83690; 85025; 88304; 96365; 96375; 96376; 99221; 99285; Q9967; A4216; G0378; J2405